=== PATIENT | male | born 1960 | race Hispanic/Latino ===

== ENCOUNTER 2019-02-28 11:48 | Inpatient (IN) | payer OTHER ==
[~2019-02-28] VITALS: Ht 180.3 cm; Wt 84.8 kg
--- OUTSIDE RECORDS SUMMARY | 2019-02-28 11:49 | XMS REPORT ---
Author Author [facility] Address Unknown Phone Unavailable Care Team Providers Care [employer] Grade Teacher Name Role Phone Unavailable Unavailable Payers Payer Name Policy Type Policy Number Effective Date Expiration Date Problems This patient has no known problems. Allergies, Adverse Reactions, Alerts Allergy Name Allergy Type Status Severity Reaction(s) Onset Date Inactive Date Treating Clinician Comments No Known Allergies DA Active U 2018-11-19 00:00:00 Medications This patient has no known medications. Results Test Description Test Time Test Comments Text Results Atomic Results Result Comments ELECTROLYTES PROFILE 2018-11-19 17:33:00 SODIUM (test code=NA) 142 mmol/L 136-145 POTASSIUM (test code=K) 3.9 mmol/L 3.5-5.1 CHLORIDE (test code=CL) 110.0 mmol/L 98-107 CARBON DIOXIDE (test code=CO2) 27.0 mmol/L 21-32 ANION GAP (test code=GAP) 8.9 10-20 CBC W/AUTO [id number] 17:18:00* Test Item Value Reference Range Comments WHITE BLOOD CELL (test code=WBC) 3.0 K/mm3 4.5-12.5 RED BLOOD CELL (test code=RBC) 3.46 mill/mm3 4.0-5.8 HEMOGLOBIN (test code=HGB) 9.6 gram/dL 13.0-17.5 HEMATOCRIT (test code=HCT) 31.5 % 42.0-52.0 MEAN CELL VOLUME (test code=MCV) 91.0 fL 80-98 MEAN CELL HGB (test code=MCH) 27.7 picogram 27.0-33.0 MEAN CELL HGB CONCETRATION (test code=MCHC) 30.5 gram/dL 33.0-36.0 RED CELL DISTRIBUTION WIDTH (test code=RDW) 16.9 % 11.6-16.2 RED CELL DISTRIBUTION WIDTH SD (test code=RDW-SD) 55.5 fL 37.0-51.0 PLATELET COUNT (test code=PLT) 109 K/mm3 150-450 MEAN PLATELET VOLUME (test code=MPV) 9.6 fL 6.7-11.0 NEUTROPHIL % (test code=NT%) 50.6 % 39.0-69.0 IMMATURE GRANULOCYTE % (test code=IG%) 0.0 % 0.0-5.0 LYMPHOCYTE % (test code=LY%) 33.6 % 25.0-55.0 MONOCYTE % (test code=MO%) 12.8 % 0.0-10.0 EOSINOPHIL % (test code=EO%) 2.7 % 0.0-5.0 BASOPHIL % (test code=BA%) 0.3 % 0.0-1.0 NUCLEATED RBC % (test code=NRBC%) 0.0 % 0-0 NEUTROPHIL # (test code=NT#) 1.51 K/mm3 1.8-7.7 IMMATURE GRANULOCYTE # (test code=IG#) 0.00 x10 3/uL 0-0.03 LYMPHOCYTE # (test code=LY#) 1.00 K/mm3 1.0-5.0 MONOCYTE # (test code=MO#) 0.38 K/mm3 0-0.8 EOSINOPHIL # (test code=EO#) 0.08 K/mm3 0.0-0.5 BASOPHIL # (test code=BA#) 0.01 K/mm3 0.0-0.2 NUCLEATED RBC # (test code=NRBC#) 0.00 K/mm3 0.0-0.1 MANUAL DIFF REQUIRED (test code=MDIFF) NO
--- OUTSIDE RECORDS SUMMARY | 2019-02-28 11:49 | XMS REPORT | Clinical Summary ---
Author Author ROSLYN [facility] Organization [facility] Address Unknown Phone Unavailable Care Team Providers Care [employer] Name Role Phone Abdon Fields PCP Allergies No Known Allergies Medications End Date Status Medication Sig Dispensed Refills Start Date Active propranolol (INDERAL) 10 Take 10 mg by 0 MG tablet mouth 2 (two) times daily. Active losartan-hydroCHLOROthiaz Take 1 tablet 0 josie (HYZAAR) 100-25 mg by mouth per tablet daily. Active pantoprazole (PROTONIX) Take 40 mg by 0 40 MG tablet mouth daily. Active Problems No known active problems Encounters Care Team Description Date Type Specialty Jeancarlos Barker MD 10/21/2018 Anesthesia Gastroenterology Event Ray Castellanos MD UPPER ENDOSCOPY,FNA W/ULTRASOUND 10/21/2018 Surgery Gastroenterology Ray Castellanos MD 10/21/2018 Hospital Gastroenterology Encounter Resource, [facility] Phone 10/16/2018 Hospital Pre-Admission Testing Encounter after 02/27/2018 Social History Date Tobacco Use Types Packs/Day Years Used Never Smoker Smokeless Tobacco: Never Used Alcohol Use Drinks/Week oz/Week Comments No quit 09/26/2018 Alcohol Habits Answer Date Recorded How often do you have a drink containing alcohol? Never 10/16/2018 How many drinks containing alcohol do you have on Not asked a typical day when you are drinking? How often do you have six or more drinks on one Not asked occasion? Sex Assigned at Date Recorded Not on file Industry Job Start Date Occupation Not on file Not on file Not on file Travel End Travel History Travel Start No recent travel history available. Last Filed Vital Signs Time Taken Vital Sign Reading 10/21/2018 11:30 AM [employer] Blood Pressure 103/56 10/21/2018 11:30 AM [employer] Pulse 74 10/21/2018 11:30 AM [employer] Temperature 36.7 C (98 F) 10/21/2018 11:30 AM [employer] Respiratory Rate 14 10/21/2018 11:30 AM [employer] Oxygen Saturation 98% - Inhaled Oxygen - Concentration 10/21/2018 8:57 AM [employer] Weight 78.2 kg (172 lb 8 oz) 10/21/2018 8:57 AM [employer] Height 180.3 cm (5' 11") 10/21/2018 8:57 AM [employer] Body Mass Index 24.06 Plan of Treatment Not on file Procedures Comments Procedure Name Priority Date/Time Associated Diagnosis REPORT OF PROCEDURE - 10/21/2018 ENDOSCOPY URL 10:37 AM [employer] UPPER ENDOSCOPY,FNA 10/21/2018 Gastric varices W/ULTRASOUND 10:00 AM [employer] Special Needs (LINEAR SCOPE, COIL and GLUE) after 02/27/2018 Results * REPORT OF PROCEDURE - ENDOSCOPY URL (10/21/2018 10:37 AM [employer]) Narrative Performed At after 02/27/2018 Insurance Payer Benefit Subscriber ID Type Phone Address Plan / Group AETNA - [employer] AETNA HMO xxxxxxxxxx HMO/POS POS QPOS
[2019-02-28] MEDS ORDERED: CEFEPIME HCL 1 GM VIAL IV SCH (13:15)
[2019-02-28] MEDS ORDERED: CEFEPIME 1GM/NS 0.9% 50 ML 50 ML IV ONE (13:30)
--- NOTE | 2019-02-28 14:04 | Diagnostic Imaging Report ---
EXAMINATION: CHEST 2 VIEWS INDICATION: ^fuo ^[id number] ^[id number] ^N COMPARISON: None FINDINGS: PA and lateral views TUBES and LINES: None. LUNGS: Lungs are well inflated. Indeterminate 5.2 cm right upper lobe opacity extending into the pleural space. Bilateral hilar and lower lobes. Bronchial wall thickening. PLEURA: No pleural effusion or pneumothorax. HEART AND MEDIASTINUM: The cardiomediastinal silhouette is unremarkable. BONES AND SOFT TISSUES: No acute osseous lesion. Soft tissues are unremarkable. UPPER ABDOMEN: No free air under the diaphragm. IMPRESSION: Indeterminate right upper lobe mass/consolidation. Recommend further evaluation with CT chest with IV contrast. Signed by: Dr. Dorene Mcclure M.D. on 02/28/2019 2:01 PM
[2019-02-28 14:17] LABS: BILIRUBIN,URINE NEGATIVE (NEGATIVE); CLARITY,URINE SL CLOUDY (CLEAR); KETONES,URINE NEGATIVE (NEGATIVE); LEUKOCYTE ESTERASE ,URINE NEGATIVE (NEGATIVE); NITRITE,URINE NEGATIVE (NEGATIVE); PROTEIN,URINE DIPSTICK NEGATIVE (NEGATIVE); URINE UROBILINOGEN 1 mg/dL (0.2 - 1)
[2019-02-28 14:18] LABS: BASOPHILS % 0.2 % (0.0-1.0); EOSINOPHILS # (AUTO) 0.1 (0.0-0.4); EOSINOPHILS % 0.5 % (0.0-6.0); HEMATOCRIT 26.1 % (38.2-49.6); HEMOGLOBIN 8.4 g/dL (14.0-18.0); LYMPHOCYTES # (AUTO) 1.3 (1.0-3.2); LYMPHOCYTES % 9.1 % (18.0-39.1); MEAN CORPUSCULAR HEMOGLOBIN 27.1 pg (28-32); MEAN CORPUSCULAR HGB CONC 32.2 g/dL (31-35); MEAN CORPUSCULAR VOLUME 84.2 fL (81-99); MONOCYTES # (AUTO) 1.2 (0.2-0.8); MONOCYTES % 8.3 % (4.4-11.3); NEUTROPHILS # (AUTO) 11.9 (2.1-6.9); NEUTROPHILS % 81.4 % (38.7-80.0); PLATELET COUNT 81 x10e3/uL (140-360); RED CELL DISTRIBUTION WIDTH 14.9 % (11.7-14.4)
[2019-02-28 14:20] LABS: COLOR,URINE AMBER (YELLOW)
[2019-02-28 14:25] LABS: AMORPHOUS SEDIMENT,URINE FEW (FEW); BACTERIA,URINE FEW /HPF; EPITHELIAL CELLS,URINE FEW /LPF; RBC,URINE 0-5 /HPF (0-5)
[2019-02-28 14:34] LABS: INR 2.1; PROTHROMBIN TIME 24.2 seconds (11.9-14.5)
[2019-02-28 14:35] LABS: PARTIAL THROMBOPLASTIN TIME 51.8 seconds (23.8-35.5)
[2019-02-28 14:43] LABS: ALANINE AMINOTRANSFERASE 18 IU/L (0-55); ALBUMIN/GLOBULIN RATIO 0.5 (0.8-2.0); ALKALINE PHOSPHATASE 112 IU/L (40-150); ANION GAP 12.3 mmol/L (8-16); BLOOD UREA NITROGEN 12 mg/dL (7-26); BUN/CREATININE RATIO 16 (6-25); CALCIUM 7.8 mg/dL (8.4-10.2); CARBON DIOXIDE 20 mmol/L (22-29); CHLORIDE 102 mmol/L (98-107); CREATININE, SERUM 0.74 mg/dL (0.72-1.25); EST GLOMERULAR FILTRATION RATE > 60 ML/MIN (60-); GLUCOSE 120 mg/dL (74-118); POTASSIUM 3.3 mmol/L (3.5-5.1); SODIUM 131 mmol/L (136-145)
[2019-02-28] MEDS ORDERED: IOPAMIDOL 370 MG/ML 200 ML INFUS..BTL INJ ONE (14:58)
[2019-02-28] MEDS ORDERED: SODIUM CHLORIDE 0.9% 50ML 50 ML ONE (14:58)
--- NOTE | 2019-02-28 16:36 | Diagnostic Imaging Report ---
EXAM: CT Chest WITH contrast 02/28/2019 3:15 PM INDICATION: ^possible mass or pneumonia RUL ^[id number] ^[id number] COMPARISON: Chest radiograph 02/28/2019 TECHNIQUE: Chest was scanned utilizing a multidetector helical scanner from the lung apex through the level of the adrenal glands after administration of IV contrast. Coronal and sagittal reformations were obtained. IV CONTRAST: 100 mL of Isovue-370 ORAL CONTRAST: None COMPLICATIONS: None RADIATION DOSE: Total DLP: 554.19 mGy*cm Estimated effective dose: (DLP x 0.015 x size factor) mSv CTDIvol has been reviewed. It is below the limits set by the Radiation Protocol Committee (RPC). FINDINGS: LINES/ TUBES: None. LUNGS AND AIRWAYS: Large, 5.3 x 4.6 cm, pleural-based right upper lobe consolidation/mass, which is abutting the fissure. There are additional multiple pleural-based nodules measuring up to 13 mm in the posterior right lower lobe with surrounding mild groundglass opacities on series 3, images 84-91 and a 13 mm pleural-based solid nodule in the left upper lobe on image 49. Patchy groundglass opacity in the left upper lobe, measuring up to 2.7 cm on series 3, image 41. Mild subpleural reticulation of the lungs in both posterior lobe suggestive of minimal pulmonary fibrosis. No honeycombing. No bronchiectasis. PLEURA: The pleural spaces are clear. HEART AND MEDIASTINUM: The thyroid gland is normal. Few noncalcified mediastinal lymph nodes with the largest measuring 1.6 cm in the right lower paratracheal region (4R) on series 2, image 59 and a subcarinal lymph node measuring 1.2 cm on image 70. Fewer small subcentimeter right hilar lymph nodes. The left atrium is enlarged. Moderate calcifications of the mitral annulus. Mild to moderate coronary artery calcifications. There is no pericardial effusion. The thoracic aorta is normal in size and associated with minimal calcifications in the arch. The main pulmonary artery is mildly increased in size measuring 3.1 cm in diameter. UPPER ABDOMEN: The right adrenal gland is unremarkable. The left adrenal gland has not been included in this exam. Cirrhotic liver morphology with multiple gastroesophageal and gastrosplenic varices. Metallic/coiling material within the stomach. Small amount of ascites. The spleen appears prominent. BONES: The visualized bony thorax is within normal limits. SOFT TISSUES: Gynecomastia. IMPRESSION: Large right upper lobe pleural-based consolidation/mass with associated multiple pleural-based posterior right lower lobe and left upper lobe solid nodules, measuring up to 13 mm. Findings are highly concerning for malignancy with possible superimposed pneumonia. Differential diagnoses include aggressive infection due to mycobacterial or fungal infection. Mediastinal and right hilar lymphadenopathy. Recommend pulmonary consultation. Signed by: Dr. Dorene Mcclure M.D. on 02/28/2019 4:33 PM
[2019-02-28] MEDS ORDERED: D5.45%NS/KCL 20MEQ 1,000 ML IV SCH (17:30)
[2019-02-28] MEDS: PIPER-TAZ 3.375 GM 50 ML IV SCH (18:00)
--- OUTSIDE RECORDS SUMMARY | 2019-02-28 18:23 | XMS REPORT | Clinical Summary ---
Author Author ROSLYN [facility] Organization [facility] Address Unknown Phone Unavailable Care Team Providers Care Supervisor Instrument Maintenance Name Role Phone Abdon Fields PCP Allergies [...] Castellanos MD 10/21/2018 Hospital Gastroenterology Encounter Resource, [facility] Phone 10/16/2018 Hospital Pre-Admission Testing Encounter [...] Taken Vital Sign Reading 10/21/2018 11:30 AM TANK INSPECTOR Blood Pressure 103/56 10/21/2018 11:30 AM TANK INSPECTOR Pulse 74 10/21/2018 11:30 AM TANK INSPECTOR Temperature 36.7 C (98 F) 10/21/2018 11:30 AM TANK INSPECTOR Respiratory Rate 14 10/21/2018 11:30 AM TANK INSPECTOR Oxygen Saturation 98% - Inhaled Oxygen - Concentration 10/21/2018 8:57 AM TANK INSPECTOR Weight 78.2 kg (172 lb 8 oz) 10/21/2018 8:57 AM TANK INSPECTOR Height 180.3 cm (5' 11") 10/21/2018 8:57 AM TANK INSPECTOR Body Mass Index 24.06 Plan of Treatment Not on file Procedures Comments Procedure Name Priority Date/Time Associated Diagnosis REPORT OF PROCEDURE - 10/21/2018 ENDOSCOPY URL 10:37 AM TANK INSPECTOR UPPER ENDOSCOPY,FNA 10/21/2018 Gastric varices W/ULTRASOUND 10:00 AM TANK INSPECTOR Special Needs (LINEAR SCOPE, COIL and GLUE) after 02/27/2018 Results * REPORT OF PROCEDURE - ENDOSCOPY URL (10/21/2018 10:37 AM TANK INSPECTOR) Narrative Performed At after 02/27/2018 Insurance Payer Benefit Subscriber ID Type Phone Address Plan / Group AETNA - [employer] C[employer] AETNA HMO xxxxxxxxxx HMO/POS POS QPOS
--- NOTE | 2019-02-28 18:31 | NUR ---
DR SANDOVAL AT BEDSIDE
--- NOTE | 2019-02-28 19:00 | NUR ---
Received report from previous nurse. Waiting for patient to come to the unit.
[2019-02-28 19:35] VITALS: BP 139/63
--- NOTE | 2019-02-28 19:35 | NUR ---
Patient arrived via stretcher to the unit. at bedside. Patient in bed. Call light within reach.
[2019-02-28] MEDS: ALBUTEROL SULF 0.083% NEB SOLN 3 ML NEB NEB SCH ×2 (19:45→23:10)
[2019-02-28] MEDS: IPRATROPIUM BROMIDE 0.02% 2.5 ML NEB NEB SCH (19:45)
[2019-02-28 20:00] VITALS: BP 139/63
--- NOTE | 2019-02-28 20:03 | Consultation ---
DATE OF CONSULTATION: 02/28/2019 Pulmonary Medicine Consult REFERRING PHYSICIAN: 1. Dr. García. 2. Dr. Fields. REASON FOR REFERRAL: Abnormal chest radiography. HISTORY OF PRESENT ILLNESS: Mr. Rodriguez is a pleasant 58-year-old gentleman with abnormal chest radiography. The patient presented with increasing fevers for the last 3 days. Measured fever up to 103.8 per the . In our hospital, we confirmed high fevers. He is not having any difference in his sputum production. Denies any sinus pain and he has good dentition per his , who is a dental hygienist. The patient had urinalysis with 6 to 10 white blood cells, 15 white count in serum. Albumin was 2.0 with 4.1 globulins. The patient had a chest x-ray demonstrating right upper lobe consolidation and mild atelectasis. CAT scan of the chest demonstrated 5.3 x 4.6 cm right upper lobe ground-glass consolidation, but he also has some subpleural nodules that seems semi solid and he definitely has a contralateral left-sided pericardiac/subpleural nodule and these are up to 13 mm in size. Lungs were also noted to have lymph nodes up to 1.6 cm in the mediastinum. At this point, I am consulted. He has history of advanced cirrhosis, but he quit drinking in September 2018. No known lung disease in the past. PAST MEDICAL HISTORY: Alcoholic cirrhosis, varices, and portal hypertension. MEDICATIONS: Medication list reviewed per the chart record. ALLERGIES: NO KNOWN DRUG ALLERGIES. SOCIAL HISTORY: No smoking. No drugs. Alcohol for at least 20 years, heavy, 6 to 12 drinks per day, but he quit in September 2018. The patient works mainly in transport coordination, but did not have any high occupational exposures. Two dogs and two cats at home. FAMILY HISTORY: Noncontributory to this. REVIEW OF SYSTEMS: GENERAL: No weight loss. HEENT: No ulcers in mouth. ENDOCRINE: No thyroid disease. PULMONARY: No hemoptysis. CARDIAC: No heart attacks. : No blood in urine. GI: No diarrhea. MUSCULOSKELETAL: Mild arthritis. PSYCHIATRIC: No depression. NEUROLOGIC: No seizures. OBJECTIVE: VITAL SIGNS: Temperature of 99.5, heart rate 81, 99/60 blood pressure, respiratory rate 16. GENERAL: Mildly tired, but no acute distress, in bed, speaking. HEENT: Normocephalic, atraumatic. Some dentition missing but present teeth are in reasonable state. NECK: Supple. Throat midline. LUNGS: Bilateral air entry, limited but mostly clear. CARDIOVASCULAR: S1, S2. No murmurs, rubs, or gallops. ABDOMEN: Soft, nontender. EXTREMITIES: No clubbing no cyanosis. There is some 2+ edema in the legs. INTEGUMENT: No rash, no purpura. LABORATORY DATA: 15 white count, 26 hematocrit, 81 platelets. 3.3 potassium, 131 sodium, 12 BUN, 0.7 creatinine. INR 2.10. IMPRESSION AND PLAN: 1. Abnormal chest radiography, 5.3 cm ground-glass consolidation right upper lobe. Treat for community-acquired pneumonia. 2. History of some fevers over the last five months recurring. Widened differential, rule out chronic pneumonia. 3. Bilateral lung nodules, more solid appearance either related to the acute pneumonitis versus unrelated. 4. Abnormal chest radiography, nonspecific lymph nodes up to 1.6 cm in size. 5. Alcohol dependency, 6 to 12 drinks per day, but quit in September 2018. 6. Hypertension. 7. Portal hypertension, esophageal varices status post banding. 8. Coagulopathy, likely hepatic related. 9. Severe protein malnutrition. 10. Hypergammaglobulinemia. 11. Anemia. 12. Thrombocytopenia. 13. Hyponatremia. 14. Hypokalemia. 15. Leg edema. Repeat labs in the morning. Follow up clinically see if he improves. Treat for community-acquired pneumonia. If there is a lag in his improvement, we will consider bronchoscopy to look for chronic pneumonitis. Check noninvasive and serologic markers for fungal pneumonias. Continue alcohol abstinence. Regarding the solid lung nodules, we will consider biopsy if he does not get better soon or alternately perform three months repeat chest radiography with or without PET scanning at that time. The patient in guarded condition due to his advanced cirrhosis. Thank you very much, Dr. Fields and Dr. García for allowing me a chance to participate in the care of Mr. Rodriguez. Please call with questions. MD MECHE Camp/MODL /[id number]
[2019-02-28] MEDS: DOXYCYCLINE 100MG/NS 100ML 100 ML IV SCH (21:53)
[2019-02-28] MEDS ORDERED: PROPRANOLOL HCL10 MG PO (23:11)
[2019-02-28] MEDS ORDERED: PANTOPRAZOLE SO40 MG PO (23:11)
--- NOTE | 2019-02-28 23:15 | NUR ---
Called and talked to Dr. Kennedy about patient having a temperature of 102.1F. Dr. Kennedy ordered a BMP and Magnesium done tomorrow morning. He also ordered Tylenol 650 mg q4h PRN for temperature greater than 101.
[2019-02-28] MEDS: ACETAMINOPHEN 325 MG TAB PO PRN (23:32)
[2019-02-28] MEDS ORDERED: INFLUENZA VIRUS VAC SPLIT INJ 0.5 ML SYR IM SCH (23:42)
[2019-02-28] MEDS ORDERED: PNEUMOCOCCAL VACCINE POLYVALENT 23 MCG/0.5 ML VIAL IM SCH (23:42)
[2019-03-01] VITALS (9 sets, daily range): BP systolic 90–121; BP diastolic 55–71
[2019-03-01] MEDS: PIPER-TAZ 3.375 GM 50 ML IV SCH ×5 (00:02→23:20)
[2019-03-01] MEDS: IPRATROPIUM BROMIDE 0.02% 2.5 ML NEB NEB SCH ×4 (02:30→19:42)
[2019-03-01] MEDS: ALBUTEROL SULF 0.083% NEB SOLN 3 ML NEB NEB SCH ×5 (02:30→19:42)
[2019-03-01] MEDS ORDERED: D5.45%NS/KCL 20MEQ 1,000 ML IV SCH (06:00)
[2019-03-01 06:10] LABS: BASOPHILS % 0.4 % (0.0-1.0); EOSINOPHILS # (AUTO) 0.1 (0.0-0.4); EOSINOPHILS % 0.5 % (0.0-6.0); HEMATOCRIT 26.2 % (38.2-49.6); HEMOGLOBIN 8.3 g/dL (14.0-18.0); LYMPHOCYTES # (AUTO) 1.4 (1.0-3.2); LYMPHOCYTES % 12.9 % (18.0-39.1); MEAN CORPUSCULAR HEMOGLOBIN 27.1 pg (28-32); MEAN CORPUSCULAR HGB CONC 31.7 g/dL (31-35); MEAN CORPUSCULAR VOLUME 85.6 fL (81-99); MONOCYTES % 9.2 % (4.4-11.3); NEUTROPHILS # (AUTO) 8.3 (2.1-6.9); NEUTROPHILS % 76.2 % (38.7-80.0); RED BLOOD COUNT 3.06 x10e6/uL (4.3-5.7); RED CELL DISTRIBUTION WIDTH 14.8 % (11.7-14.4)
[2019-03-01 06:11] LABS: PLATELET COUNT 86 x10e3/uL (140-360)
[2019-03-01 06:28] LABS: INR 2.31; PROTHROMBIN TIME 26.1 seconds (11.9-14.5)
[2019-03-01 06:29] LABS: PARTIAL THROMBOPLASTIN TIME 56.8 seconds (23.8-35.5)
[2019-03-01 06:35] LABS: ALANINE AMINOTRANSFERASE 15 IU/L (0-55); ALBUMIN 1.8 g/dL (3.5-5.0); ALBUMIN/GLOBULIN RATIO 0.5 (0.8-2.0); ALKALINE PHOSPHATASE 93 IU/L (40-150); ANION GAP 8.5 mmol/L (8-16); BLOOD UREA NITROGEN 14 mg/dL (7-26); BUN/CREATININE RATIO 19 (6-25); CALCIUM 7.6 mg/dL (8.4-10.2); CARBON DIOXIDE 23 mmol/L (22-29); CHLORIDE 106 mmol/L (98-107); CREATININE, SERUM 0.72 mg/dL (0.72-1.25); EST GLOMERULAR FILTRATION RATE > 60 ML/MIN (60-); GLUCOSE 125 mg/dL (74-118); LACTATE DEHYDROGENASE 207 IU/L (125-220); MAGNESIUM 1.2 MG/DL (1.3-2.1); POTASSIUM 3.5 mmol/L (3.5-5.1); SODIUM 134 mmol/L (136-145)
--- NOTE | 2019-03-01 07:16 | NUR ---
GAVE REPORT TO ONCOMING NURSE. PATIENT IN BED. CALL LIGHT WITHIN REACH.
--- NOTE | 2019-03-01 07:21 | NUR ---
PATIENT IN BED WITH HEAD OF BED ELEVATED RECEIVING NEB TREATMENT, NO DISTRESS NOTED. DENIED PAIN AT THIS TIME. BED IN LOWER POSITION AND LOCKED. CALL LIGHT AT REACH.
[2019-03-01] MEDS: CEFTRIAXONE SOD 1 GM/NS 50 ML 50 ML IV SCH (08:18)
[2019-03-01] MEDS: DOXYCYCLINE 100MG/NS 100ML 100 ML IV SCH ×2 (09:00→20:02)
[2019-03-01 09:02] LABS: HIV 1&2 AB SCREEN NON-REACTIVE (NONREACTIVE)
[2019-03-01] MEDS: MULTIVITAMINS/MINERALS TAB PO SCH (09:06)
--- NOTE | 2019-03-01 11:12 | NUR ---
PATIENT SITTING UP IN BED TALKING ON THE PHONE, NO COMPLAIN VOICED. IV FLUID INFUSINGAS ORDERED. CALL LIGHT AT REACH.
--- NOTE | 2019-03-01 12:25 | NUR ---
Pulmonary Medicine DATE OF ENCOUNTER: 03/01/2019 SUBJECTIVE: PATIENt feels a lot better he walked to restroom RA FIO2 BCX coming positive low normal BP REVIEW OF SYSTEMS: no rash, no seizures OBJECTIVE: VITAL SIGNS: reviewed as per EMR GENERAL: Better energy, NAD HEENT: Normocephalic, atraumatic. NECK: Supple. Throat midline. LUNGS: Bilateral air entry, limited but mostly clear. CARDIOVASCULAR: S1, S2. No murmurs, rubs, or gallops. ABDOMEN: Soft, nontender. EXTREMITIES: No clubbing no cyanosis. 2+ leg edema INTEGUMENT: No rash, no purpura. LABORATORY DATA: k 3.5, 11 wbc, mg 1.2, phos 2.0, inr 2.31, hiv negative IMPRESSION AND PLAN: 1. Abnormal chest radiography, 5.3 cm ground-glass consolidation in right upper lobe. Treat for community-acquired pneumonia. 2. History of some fevers over the last five months recurring. Widened differential, rule out chronic pneumonia. 3. Bilateral lung nodules of a more solid appearance. Either related to the acute pneumonitis versus an unrelated other process. 4. Abnormal chest radiography, nonspecific lymph nodes up to 1.6 cm in size. 5. Alcohol dependency, 6 to 12 drinks per day, quit September 2018. 6. Hypertension. 7. Portal hypertension, esophageal varices status post banding. 8. Coagulopathy, likely hepatic related. 9. Severe protein malnutrition. 10. Hypergammaglobulinemia. 11. Anemia. 12. Thrombocytopenia. 13. Hyponatremia. 14. Hypokalemia. 15. Leg edema. Replete labs Follow up clinically for more improvement. IV Abx for CAP If there is a lag in his improvement, we will consider bronchoscopy to look for chronic pneumonia Follow up noninvasive and serologic markers for fungal pneumonias. Continue alcohol abstinence. Regarding the solid lung nodules, biopsy can be considered if he does not get better soon or alternately perform a repeat three months chest CT+/- PET scanning at that time and consider biopsy needs AM CXR Thank you very much, Dr. Fields and Dr. García for allowing me a chance to participate in the care of Mr. Rodriguez. Please call with questions.
[2019-03-01] MEDS ORDERED: PHYTONADIONE 10 MG/ML AMP SC ONE (13:00)
[2019-03-01] MEDS ORDERED: MAGNESIUM SULFATE 2GM/50ML 50 ML IV ONE (13:00)
[2019-03-01] MEDS ORDERED: POTASSIUM PHOSPHATE 20 MM in SODIUM CHLORIDE 0.9% 250ML 250 ML IV ONE (13:00)
[2019-03-01] MEDS ORDERED: SODIUM CHLORIDE 0.9% 500ML 500 ML ONE (15:11)
--- NOTE | 2019-03-01 16:19 | NUR ---
PATIENT SITTING UP IN BED TALKING TO FAMILY MEMBER VISITING, NO DISTRESS NOTED. IV POTASSIUM INFUSING ORDERED. CALL LIGHT AT REACH.
[2019-03-01] MEDS ORDERED: PANTOPRAZOLE SO40 MG PO (17:52)
[2019-03-01] MEDS ORDERED: PROPRANOLOL HCL10 MG PO (17:52)
--- NOTE | 2019-03-01 19:30 | NUR ---
PT IS RESTING IN THE BED WITH AT BEDSIDE. RESPIRATION IS EVEN AND UNLABORED, NO DISTRESS NOTED. BED IN THE LOWEST POSITION, LOCKED, AND CALL LIGHT WITHIN REACH. WILL CONTINUE TO MONITOR.
[2019-03-01] MEDS: ACETAMINOPHEN 325 MG TAB PO PRN (23:30)
[2019-03-02] VITALS (9 sets, daily range): BP systolic 104–131; BP diastolic 58–78
[2019-03-02] MEDS: IPRATROPIUM BROMIDE 0.02% 2.5 ML NEB NEB SCH ×4 (00:08→19:38)
[2019-03-02] MEDS: ALBUTEROL SULF 0.083% NEB SOLN 3 ML NEB NEB SCH ×7 (00:08→19:38)
[2019-03-02] MEDS: PIPER-TAZ 3.375 GM 50 ML IV SCH ×3 (05:56→18:22)
--- NOTE | 2019-03-02 06:45 | Diagnostic Imaging Report ---
EXAMINATION: CHEST SINGLE (PORTABLE) INDICATION: pneumonia COMPARISON: Chest CT 02/28/2019 FINDINGS: AP view TUBES and LINES: None. LUNGS: Lungs are well inflated. Airspace and consolidative opacity in the right upper lobe. PLEURA: New small right pleural effusion. HEART AND MEDIASTINUM: The cardiomediastinal silhouette is unremarkable. BONES AND SOFT TISSUES: No acute osseous lesion. Soft tissues are unremarkable. UPPER ABDOMEN: No free air under the diaphragm. IMPRESSION: The right upper lobe opacity is consistent with pneumonia, although underlying malignancy is possible. Recommend follow-up chest CT in 6 weeks following treatment for reevaluation. New small right pleural effusion. Signed by: Pasha Clark DO on 03/02/2019 6:41 AM
--- NOTE | 2019-03-02 07:22 | NUR ---
PATIENT IN BED RESTING WITH EYES CLOSED, NO RESPIRATORY DISTRESS OBSERVED. BED IN LOWER POSITION, CALL LIGHT AT REACH.
[2019-03-02] MEDS: CEFTRIAXONE SOD 1 GM/NS 50 ML 50 ML IV SCH (08:40)
[2019-03-02] MEDS: DOXYCYCLINE 100MG/NS 100ML 100 ML IV SCH ×2 (09:00→21:34)
[2019-03-02] MEDS: MULTIVITAMINS/MINERALS TAB PO SCH (09:05)
--- NOTE | 2019-03-02 11:19 | NUR ---
PATIENT ASSISTED TO THE RESTROOM AND BACK TO BED. DENIED PAIN OR DISCOMFORT. CALL LIGHT AT REACH.
[2019-03-02] MEDS ORDERED: PHYTONADIONE 10 MG/ML AMP SQ ONE (13:15)
--- NOTE | 2019-03-02 13:27 | NUR ---
Pulmonary Medicine DATE OF ENCOUNTER: 03/02/2019 SUBJECTIVE: Feels mildly better fever to 102 F noted voids 1 bm x 3 eating REVIEW OF SYSTEMS: no rash, no seizures OBJECTIVE: VITAL SIGNS: reviewed as per EMR GENERAL: Better energy, NAD HEENT: Normocephalic, atraumatic. NECK: Supple. Throat midline. LUNGS: Bilateral air entry, limited but mostly clear. CARDIOVASCULAR: S1, S2. No murmurs, rubs, or gallops. ABDOMEN: Soft, nontender. EXTREMITIES: No clubbing no cyanosis. 2+ leg edema INTEGUMENT: No rash, no purpura. LABORATORY DATA: 3.5 k, cr .7. 11 wbc. hct 26. plt 86. inr 2.31 IMPRESSION AND PLAN: 1. Abnormal chest radiography, 5.3 cm ground-glass consolidation in right upper lobe. Treat for community-acquired pneumonia. 2. History of some fevers over the last five months recurring. Widened differential, rule out chronic pneumonia. 3. Bilateral lung nodules of a more solid appearance. Either related to the acute pneumonitis versus an unrelated other process such as tumor. 4. Abnormal chest radiography, nonspecific lymph nodes up to 1.6 cm in size. 5. Alcohol dependency, 6 to 12 drinks per day, quit September 2018. 6. Hypertension. 7. Portal hypertension, esophageal varices status post banding. 8. Coagulopathy, likely hepatic related. 9. Severe protein malnutrition. 10. Hypergammaglobulinemia. 11. Anemia. 12. Thrombocytopenia. 13. Hyponatremia. 14. Hypokalemia. 15. Leg edema. recheck AM labs, check ESR Follow up clinically for more improvement. IV Abx for CAP Due to refractory fevers, get more invasive specimen. Consult IR for biopsy of MAYKEL nodule --Regarding the solid lung nodules, will offer lung nodule biopsy as patient not readily better, but if the coagulopathy or patient dictates not to get an early biopsy then consider a repeat three months chest CT+/- PET scanning at that time and re-consider biopsy needs BCX growing GNR so far, follow this. ---Follow up noninvasive and serologic markers for fungal pneumonias. No bronchoscopy unless looking for fungi or other conditions. For now, GNR are growing on the blood cultures. Continue alcohol abstinence. intermittent AM CXR Thank you very much, Dr. Fields and Dr. García for allowing me a chance to participate in the care of Mr. Rodriguez. Please call with questions.
[2019-03-02] MEDS ORDERED: VANCOMYCIN 1GM/NS 250 ML 250 ML IV SCH (13:30)
[2019-03-02] MEDS ORDERED: PHYTONADIONE 10MG/ML 10 MG in SODIUM CHLORIDE 0.9% 50ML 50 ML IV ONE ×2 (14:00→14:30)
[2019-03-02] MEDS ORDERED: PHYTONADIONE 10MG/ML 10 MG in SODIUM CHLORIDE 0.9% 50ML 50 ML SC ONE ×2 (14:00→14:30)
[2019-03-02] MEDS: CEFEPIME 1GM/NS 0.9% 50 ML 50 ML IV SCH (14:35)
[2019-03-02] MEDS: ACETAMINOPHEN 325 MG TAB PO PRN (15:50)
--- NOTE | 2019-03-02 16:45 | NUR ---
PATIENT NOTED WITH TEMPERATURE OF 102.3. PRN TYLENOL GIVEN ORDERED. TEMPERATURE RECHECKED WITH THE READING OF 100. WILL CLOSELY MONITOR.
[2019-03-02] MEDS: PROPRANOLOL HCL 10 MG TAB PO SCH (17:31)
--- NOTE | 2019-03-02 19:17 | NUR ---
PT IS SITTING IN THE CHAIR GETTIG A BREATHING TREATMENT WITH A BEDSIDE. RESPIRATION IS EVEN AND UNLABORED, NO DISTRESS NOTED. BED IN THE LOWEST POSITION, LOCKED, AND CALL LIGHT WITHIN REACH. WILL CONTINUE TO MONITOR.
[2019-03-03] MEDS: IPRATROPIUM BROMIDE 0.02% 2.5 ML NEB NEB SCH ×4 (00:12→20:00)
[2019-03-03] MEDS: PIPER-TAZ 3.375 GM 50 ML IV SCH ×4 (00:22→17:57)
[2019-03-03] MEDS: CEFEPIME 1GM/NS 0.9% 50 ML 50 ML IV SCH ×2 (01:25→13:30)
[2019-03-03] MEDS: ALBUTEROL SULF 0.083% NEB SOLN 3 ML NEB NEB SCH ×5 (03:20→20:00)
[2019-03-03 04:00] VITALS: BP 119/65
--- NOTE | 2019-03-03 04:20 | Consultation ---
DATE OF CONSULTATION: 03/02/2019 GI Consult Note REASON FOR CONSULT: Decompensated alcoholic liver cirrhosis. HISTORY OF PRESENTING ILLNESS: A 58-year-old very pleasant male, who is a patient of my associate, Dr. Flores. He has had decompensated alcoholic liver cirrhosis. He got admitted this time in this hospital with spiking fevers for x3 days. Workup revealed that he has right upper lobe consolidation. He is currently being treated on the line of pneumonia. There is also question whether this right lobe consolidation may be representing any underlying malignancy. Pulmonology Service is following the patient. GI is being called because of his history of alcoholic liver cirrhosis. The patient is not on any diuretics. The patient is only on propranolol. The patient has had upper endoscopy and esophageal variceal banding in [facility]. It is not clear whether the patient has any gastric varices. He moves his bowels every day. Therefore, he does not need lactulose. He is not on any Xifaxan. CT chest included a portion of liver in the imaging, that showed a cirrhotic liver. No CT was done with IV contrast. This did not reveal any occult lesion in the liver. No free fluid seen. REVIEW OF SYSTEMS: 12-point system reviewed, symptomatology is limited as per HPI. PAST MEDICAL HISTORY: Alcoholic liver cirrhosis, portal hypertension, esophageal varices. PAST SURGICAL HISTORY: Upper endoscopy done in the recent past. SOCIAL HISTORY: No smoking. Quit drinking 20 years ago. Prior to that, he used to be heavy drinker, drank for significant number of years before quitting. Never used any illicit drugs. FAMILY HISTORY: Negative for any GI or DRAFTER APPRENTICE malignancies. ALLERGIES: NO KNOWN DRUG ALLERGIES. HOME MEDICATIONS: Propranolol and pantoprazole. INPATIENT MEDICATIONS: Reviewed as per OCT. He is on intravenous piperacillin/tazobactam along with doxycycline and cefepime. Other supportive medications. PHYSICAL EXAMINATION: VITAL SIGNS: Temperature 102.3, pulse 97, respirations 16, blood pressure 131/78, oxygen saturation 92% on room air. GENERAL: Appears to be not in any acute distress. HEENT: Oral mucosa is moist. Slightly bilateral icteric sclerae. CVS: S1, S2. Regular. LUNGS: Bilaterally grossly clear with rales in the right upper lung carter. ABDOMEN: Soft. No digitally appreciable shifting dullness. No tenderness. No rebound, rigidity, or guarding. Positive bowel sounds. No palpable mass or hernia. EXTREMITIES: 1+ pitting bilateral leg edema. LABORATORY DATA: WBC 10.91, hemoglobin 8.3, hematocrit 26.2. MCV 85.6, platelet count 86. Sodium 134, potassium 3.5, chloride 106, bicarb 23. BUN 14, creatinine 0.72. Liver enzymes showed total bilirubin 3.6, AST 25, ALT 15, alkaline phosphatase 93, albumin 1.8. WBC 10.91, hemoglobin 8.3, hematocrit 26.2. MCV 85.6, platelet count 86. Urinalysis negative except wbc's 6 to 10 per high-power field. HIV 1 and 2 antibody nonreactive. Chest x-ray showed right upper lobe opacities consistent with pneumonia, although underlying malignancy is possible. Recommend followup chest CT in 6 weeks following the treatment for evaluation. New small right pleural effusion. Chest CT showed large right upper lobe pleural based consolidation/mass with associated multiple pleural-based posterior right lower lobe and left upper lobe solid nodules, measuring up to 13 mm. Findings are highly concerning for malignancy with possible superimposed pneumonia. DIFFERENTIAL DIAGNOSIS: Include: 1. Aggressive infection due to mild bacterial or fungal infection. 2. Mediastinal and right hilar lymphadenopathy. The upper abdominal portion of the chest CT showed right adrenal gland is unremarkable. Left adrenal gland has not been included in this exam. Cirrhotic liver morphology with multiple gastroesophageal, gastrosplenic varices. Metallic coiling material within the stomach. Small amount of ascites. His spleen material is prominent. FINAL IMPRESSION: 1. Decompensated alcoholic liver cirrhosis with esophageal varices and portal hypertension. 2. Chest CT is also showing some metallic clip in the stomach, this is likely that the patient might have had gastric varices, for which he has had EUS-guided endo-coiling. 3. Right lung consolidation versus underlying malignancies with multiple pleural nodules. PLAN: Continue present medical management as per Pulmonary Service. From GI standpoint, I suspect that the patient has developed ascites and peripheral leg edema. This needs to be treated with a dual diuretic. Therefore, we will start 40 mg of furosemide and 100 mg of spironolactone. Monitor electrolytes closely. We will do ultrasound to check for any occult liver lesion as well as ascites. Low-salt diet. Continue other medication as before. We will continue to follow him clinically while he is here. I thank Dr. García for allowing me to participate in the care of this patient. MD MENDOZA Moran /[id number]
[2019-03-03] MEDS: ACETAMINOPHEN 325 MG TAB PO PRN (05:34)
--- NOTE | 2019-03-03 07:15 | NUR ---
The pt. was received in bed asleep ab Addendum: 03/03/19 at 1200 by Monica Carmen RN cont'd note but denies pain or discomfort when awakened. The pt. is receiving several antibiotics.
[2019-03-03 07:51] VITALS: BP 115/60
--- NOTE | 2019-03-03 08:06 | Diagnostic Imaging Report ---
EXAMINATION: CHEST SINGLE (PORTABLE) INDICATION: Pneumonia. COMPARISON: Chest CT 02/28/2019 and chest radiograph 03/02/2019. FINDINGS: AP view TUBES and LINES: None. LUNGS: Lungs are moderately inflated. Persistent confluent consolidative opacity in the right upper lung. Mild patchy opacities at the lung bases. Pulmonary nodules noted on CT chest from 02/28/2019 are not well characterized by radiograph. PLEURA: Persistent small right pleural effusion. HEART AND MEDIASTINUM: The cardiomediastinal silhouette is unremarkable. BONES AND SOFT TISSUES: No acute osseous abnormality. UPPER ABDOMEN: No free air under the diaphragm. IMPRESSION: Persistent multifocal opacities, most confluent in the right upper lung. Please refer to CT chest from 02/28/2019 for further details. Recommend follow-up imaging in 6 weeks. Signed by: Dr. Kyara Love MD on 03/03/2019 8:03 AM
[2019-03-03] MEDS: SPIRONOLACTONE 25 MG TAB PO SCH (08:33)
[2019-03-03] MEDS: PANTOPRAZOLE SOD 40 MG TABEC PO SCH (08:33)
[2019-03-03] MEDS: PROPRANOLOL HCL 10 MG TAB PO SCH ×2 (08:35→17:57)
[2019-03-03] MEDS: FUROSEMIDE 40 MG TAB PO SCH (08:35)
[2019-03-03] MEDS: MULTIVITAMINS/MINERALS TAB PO SCH (08:35)
[2019-03-03 09:00] VITALS: BP 115/60
[2019-03-03] MEDS: DOXYCYCLINE 100MG/NS 100ML 100 ML IV SCH ×2 (09:45→19:30)
[2019-03-03 11:31] VITALS: BP 108/59
--- NOTE | 2019-03-03 12:00 | NUR ---
I spoke with radiology i.e. the lung bx and is was reported that until the pt.'s i n r and temperature is in acceptable range. Dr García here and stated tat the pt's i n r will not be within range due to liver functions and the pt can be given platelets.
--- NOTE | 2019-03-03 12:49 | NUR ---
Pulmonary Medicine DATE OF ENCOUNTER: 03/03/2019 SUBJECTIVE: BCX with e coli sensitivity with mostly sensitive strain he feels a bit better still febrile, temp to 101 F REVIEW OF SYSTEMS: no rash, no bleeding OBJECTIVE: VITAL SIGNS: reviewed as per EMR GENERAL: Better energy, NAD HEENT: Normocephalic, atraumatic. NECK: Supple. Throat midline. LUNGS: Bilateral air entry, limited but mostly clear. CARDIOVASCULAR: S1, S2. No murmurs, rubs, or gallops. ABDOMEN: Soft, nontender. EXTREMITIES: No clubbing no cyanosis. 1+ leg edema INTEGUMENT: No rash, no purpura. LABORATORY DATA: no new updates IMPRESSION AND PLAN: 1. Abnormal chest radiography, 5.3 cm ground-glass consolidation in right upper lobe. Treat for e coli pneumonia. 2. History of some fevers over the last five months recurring. Widened differential, rule out chronic pneumonia. 3. Bilateral lung nodules of a more solid appearance. Either related to the acute pneumonitis vs an unrelated other process such as tumor. 4. Abnormal chest radiography, nonspecific lymph nodes up to 1.6 cm in size. 5. Alcohol dependency, 6 to 12 drinks per day, quit September 2018. 6. Hypertension. 7. Portal hypertension, esophageal varices status post banding. 8. Coagulopathy, likely hepatic related. 9. Severe protein malnutrition. 10. Hypergammaglobulinemia. 11. Anemia. 12. Thrombocytopenia. 13. Hyponatremia. 14. Hypokalemia. 15. Leg edema. recheck AM labs, check ESR Follow up clinically for more improvement and for break in fevers. IV Abx for CAP Due to refractory fevers, get more invasive specimen. Consult IR for biopsy of MAYKEL nodule --Regarding the solid lung nodules, recommend lung nodule biopsy as the patient is not readily better Follow up noninvasive and serologic markers for fungal pneumonias. No bronchoscopy planned to assess the consolidated infiltrate, unless looking for fungi or other conditions. Continue alcohol abstinence. Intermittent AM CXR Thank you very much, Dr. Fields and Dr. García for allowing me a chance to participate in the care of Mr. Rodriguez. Please call with questions.
--- NOTE | 2019-03-03 15:34 | Diagnostic Imaging Report ---
EXAM: Right upper quadrant abdominal ultrasound INDICATION: Right upper quadrant pain COMPARISON: None. TECHNIQUE: Transverse and longitudinal images of the right upper quadrant abdomen were obtained FINDINGS: Liver: Size: 17.4 cm in the right midclavicular line, normal Appearance: Increased echogenicity, nodular contour Mass: No focal masses Gallbladder: Gallbladder is decompressed and contains small amount of sludge and small echogenic foci. No pericholecystic fluid or reported sonographic Davis's sign. Gallbladder wall measures 0.4 cm. Bile Ducts: Intrahepatic Ducts: No dilatation Extrahepatic Ducts: Common bile duct measures 0.5cm, no dilatation Pancreas: Visualized portions of the pancreatic head, neck and proximal body are normal. Kidney: The right kidney measures 11.4 cm without evidence of hydronephrosis or stone. Vessels: Aorta: Visualized portions are normal Inferior Vena Cava: Visualized portions are normal Main Portal Vein: 1.1 cm, normal size with hepatopetal flow. Free Fluid: Small ascites. IMPRESSION: Hepatic steatosis and cirrhotic liver contour. Decompressed gallbladder with small amount of sludge and small echogenic foci. No specific sonographic findings of cholecystitis. Signed by: Silverio Park MD on 03/03/2019 3:30 PM
[2019-03-03 15:58] VITALS: BP 110/60
--- NOTE | 2019-03-03 19:13 | NUR ---
Received change of shift report from AM nurse. Walking rounds completed.
[2019-03-03 20:00] VITALS: BP 109/59
--- NOTE | 2019-03-03 21:00 | NUR ---
Patient AAOx3. Denies pain at this time. IV intact to left and right AC. Patient has low grade temp 100.3. Decrease temp in room and removed two blankets. Family at bedside. Will recheck temp.
[2019-03-04] VITALS (7 sets, daily range): BP systolic 96–125; BP diastolic 50–66
--- NOTE | 2019-03-04 | NUR ---
Patient temp at 100.6. Paged MD and left a message. Waiting for a call from MD. Patient resting quitly in bed. Cool towels to head and neck. Continue monitor.
[2019-03-04] MEDS: ALBUTEROL SULF 0.083% NEB SOLN 3 ML NEB NEB SCH ×7 (00:07→19:19)
--- NOTE | 2019-03-04 00:11 | Progress Note ---
DATE: 03/03/2019 GI Progress Report SUBJECTIVE: The patient reports no abdominal pain. He is awaiting to get a lung mass biopsy done. Tolerating oral diet. Regular bowel movements. REVIEW OF SYSTEMS: GENERAL: Has had a low-grade temperature today. Complaining of some fatigue. CVS: No chest pain or palpitation. RESPIRATORY: No cough or expectoration. INPATIENT MEDICATIONS: Reviewed the MAR. He is getting intravenous cefepime and doxycycline. He was started on furosemide 40 mg daily and spironolactone 100 mg daily along with other medications. PHYSICAL EXAMINATION: VITAL SIGNS: Temperature 100.5, pulse 80, respirations 20, blood pressure 109/59, oxygen saturation 97% on room air. GENERAL: The patient does have cirrhotic feces, looks quite lethargic. Oral mucosa is moist, slightly icteric sclerae. ABDOMEN: Soft, nondistended, nontender. No digital shifting dullness. No palpable mass or hernia. Positive bowel sounds. EXTREMITIES: 1+ bilateral pitting leg edema. LABORATORY DATA: PT 26.1, INR 2.31. Sodium 134, potassium 3.5, chloride 106, bicarb 23. BUN 14, creatinine 0.72, glucose 125. WBC 10.91, hemoglobin 8.3, hematocrit 26.2, MCV 85.6, platelet count 86. Chest x-ray showed persistent multifocal opacities, most confluent in the right upper lung. Please refer to CT chest from 02/28/2019 for further details. Recommend followup imaging in 6 weeks. Ultrasound of the abdomen showed hepatic steatosis and cirrhotic liver contour. Decompressed gallbladder with small amount of sludge and small echogenic foci. No specific sonographic finding of cholecystitis. IMPRESSION: 1. Decompensated alcoholic liver cirrhosis with portal hypertension and underlying esophageal and gastric varices, status post EUS-guided endocoiling of the gastric varices. 2. Right lung consolidation versus underlying malignancies. The patient is awaiting for lung biopsies. Due to supratherapeutic INR (coagulopathy), the biopsy could not be performed. The patient has been given vitamin K. PLAN: From GI standpoint for liver cirrhosis, recommend to continue to put him on low-salt diet, dual diuretic therapy. Monitor electrolytes, especially potassium while the patient is being on spironolactone. The patient has a bowel movement daily. Therefore, he does not require any lactulose. Ultrasound of the abdomen showed very trace ascites. However, the patient has leg edema. Therefore, continuation of dual diuretic therapy is recommended. No occult liver lesion seen in the ultrasound. In order to perform liver biopsy, since the patient has liver cirrhosis; therefore, vitamin K cannot bring down the INR to normal level. Therefore, if it is needed, then consider giving a fresh frozen plasma in order to get the biopsy done. Scott Caballero MD SA/AILIN /[id number]
[2019-03-04] MEDS: IPRATROPIUM BROMIDE 0.02% 2.5 ML NEB NEB SCH ×4 (00:30→19:19)
[2019-03-04] MEDS: CEFEPIME 1GM/NS 0.9% 50 ML 50 ML IV SCH ×2 (01:03→13:30)
--- NOTE | 2019-03-04 04:00 | NUR ---
called again r/t temp which is slowly increasing at 101.1 Patient resting quitly. No c/o at this time.
[2019-03-04] MEDS: PIPER-TAZ 3.375 GM 50 ML IV SCH ×2 (05:37)
[2019-03-04 06:07] LABS: BASOPHILS % 0.4 % (0.0-1.0); EOSINOPHILS # (AUTO) 0.1 (0.0-0.4); EOSINOPHILS % 2.5 % (0.0-6.0); HEMATOCRIT 23.9 % (38.2-49.6); HEMOGLOBIN 7.8 g/dL (14.0-18.0); LYMPHOCYTES # (AUTO) 1.2 (1.0-3.2); LYMPHOCYTES % 24.4 % (18.0-39.1); MEAN CORPUSCULAR HEMOGLOBIN 27.5 pg (28-32); MEAN CORPUSCULAR HGB CONC 32.6 g/dL (31-35); MEAN CORPUSCULAR VOLUME 84.2 fL (81-99); MONOCYTES # (AUTO) 0.7 (0.2-0.8); MONOCYTES % 13.6 % (4.4-11.3); NEUTROPHILS # (AUTO) 2.8 (2.1-6.9); NEUTROPHILS % 58.5 % (38.7-80.0); PLATELET COUNT 95 x10e3/uL (140-360); RED BLOOD COUNT 2.84 x10e6/uL (4.3-5.7); RED CELL DISTRIBUTION WIDTH 14.9 % (11.7-14.4)
[2019-03-04 06:24] LABS: ALANINE AMINOTRANSFERASE 11 IU/L (0-55); ALBUMIN 1.6 g/dL (3.5-5.0); ALBUMIN/GLOBULIN RATIO 0.4 (0.8-2.0); ALKALINE PHOSPHATASE 92 IU/L (40-150); ANION GAP 6.2 mmol/L (8-16); BLOOD UREA NITROGEN 8 mg/dL (7-26); BUN/CREATININE RATIO 13 (6-25); CALCIUM 7.4 mg/dL (8.4-10.2); CARBON DIOXIDE 22 mmol/L (22-29); CHLORIDE 108 mmol/L (98-107); CREATININE, SERUM 0.61 mg/dL (0.72-1.25); EST GLOMERULAR FILTRATION RATE > 60 ML/MIN (60-); GLUCOSE 119 mg/dL (74-118); PHOSPHORUS 2.2 MG/DL (2.3-4.7); POTASSIUM 3.2 mmol/L (3.5-5.1); SODIUM 133 mmol/L (136-145)
[2019-03-04 06:25] LABS: MAGNESIUM 1.1 MG/DL (1.3-2.1)
--- NOTE | 2019-03-04 06:30 | NUR ---
Lab called with mag level of 1.1 Will inform MD or pass infor on to AM nurse.
[2019-03-04] MEDS: PANTOPRAZOLE SOD 40 MG TABEC PO SCH (07:30)
[2019-03-04] MEDS: DOXYCYCLINE 100MG/NS 100ML 100 ML IV SCH ×2 (08:00→20:00)
--- NOTE | 2019-03-04 08:13 | NUR ---
The pt. has an elevated temp this morning and potassium is low. A call will be placed to the drRe for orders.
[2019-03-04 08:35] LABS: INR 1.56; PROTHROMBIN TIME 19.3 seconds (11.9-14.5)
[2019-03-04] MEDS: MULTIVITAMINS/MINERALS TAB PO SCH (09:00)
[2019-03-04] MEDS: PROPRANOLOL HCL 10 MG TAB PO SCH ×2 (09:00→17:00)
[2019-03-04] MEDS: FUROSEMIDE 40 MG TAB PO SCH (09:00)
[2019-03-04] MEDS: SPIRONOLACTONE 25 MG TAB PO SCH (09:00)
[2019-03-04] MEDS ORDERED: POTASSIUM CHLORIDE 20MEQ/100ML 200 ML IV ONE (10:40)
[2019-03-04] MEDS ORDERED: SODIUM CHLORIDE 0.9% 250ML 250 ML ONE (11:17)
[2019-03-04] MEDS ORDERED: MAGNESIUM SULFATE 2GM/50ML 50 ML IV ONE (13:15)
--- NOTE | 2019-03-04 13:15 | NUR ---
Pulmonary Medicine DATE OF ENCOUNTER: 03/04/2019 SUBJECTIVE: more fevers 101.9 feels mildly better again RA fio2 walked REVIEW OF SYSTEMS: no rash, no bleeding OBJECTIVE: VITAL SIGNS: reviewed as per EMR GENERAL: Better energy, NAD HEENT: Normocephalic, atraumatic. NECK: Supple. Throat midline. LUNGS: Bilateral air entry, limited but mostly clear. CARDIOVASCULAR: S1, S2. No murmurs, rubs, or gallops. ABDOMEN: Soft, nontender. EXTREMITIES: No clubbing no cyanosis. 1-2+ leg edema INTEGUMENT: No rash, no purpura. LABORATORY DATA: 3.2 k, 4.8 wbc, mg 1.1, phos 2.2, ca 7.4, alb 1.6 IMPRESSION AND PLAN: 1. Abnormal chest radiography, 5.3 cm ground-glass consolidation in right upper lobe. Treat for e coli pneumonia. 2. History of some fevers over the last five months recurring. Widened differential, rule out chronic pneumonia. 3. Bilateral lung nodules of a more solid appearance. Either related to the acute pneumonitis vs an unrelated other process such as tumor. 4. Abnormal chest radiography, nonspecific lymph nodes up to 1.6 cm in size. 5. Alcohol dependency, 6 to 12 drinks per day, quit September 2018. 6. Hypertension. 7. Portal hypertension, esophageal varices status post banding. 8. Coagulopathy, likely hepatic related. 9. Severe protein malnutrition. 10. Hypergammaglobulinemia. 11. Anemia. 12. Thrombocytopenia. 13. Hyponatremia. 14. Hypokalemia. 15. Leg edema. recheck intermittent lytes / labs Follow up clinically for more improvement and for break in fevers. IV Abx for CAP Due to refractory fevers, get more invasive specimen. Consult IR for biopsy of MAYKEL nodule --Regarding the solid lung nodules, recommend lung nodule biopsy as the patient is not readily better --will follow up with nursing Follow up noninvasive and serologic markers for fungal pneumonias. No bronchoscopy planned to assess the consolidated infiltrate, unless looking for fungi or other conditions. Continue alcohol abstinence. Intermittent CXR Thank you very much, Dr. Fields and Dr. García for allowing me a chance to participate in the care of Mr. Rodriguez. Please call with questions.
--- NOTE | 2019-03-04 20:04 | NUR ---
Received change of shift report from AM nurse. Walking rounds completed.
[2019-03-05] VITALS (8 sets, daily range): BP systolic 90–103; BP diastolic 50–57
--- NOTE | 2019-03-05 | NUR ---
Patient resting quitly at this. Continue monitor.
[2019-03-05] MEDS: IPRATROPIUM BROMIDE 0.02% 2.5 ML NEB NEB SCH ×4 (00:07→12:42)
[2019-03-05] MEDS: ALBUTEROL SULF 0.083% NEB SOLN 3 ML NEB NEB SCH ×6 (00:20→20:10)
--- NOTE | 2019-03-05 00:34 | Progress Note ---
DATE: 03/04/2019 SUBJECTIVE: The patient could not get a lung biopsy today. Biopsy is scheduled tomorrow. He is tolerating oral diet. Reports no abdominal pain. Having regular bowel movement. REVIEW OF SYSTEMS: GENERAL: Admitting to some weakness and lethargy. CVS: No chest pain or palpitation. RESPIRATORY: Occasional cough with mild sputum production. MEDICATIONS: Reviewed as per OCT. PHYSICAL EXAMINATION: VITAL SIGNS: Temperature 98.8, pulse 79, respirations 19, blood pressure 96/50 to 102/58, and oxygen saturation 100% on room air. GENERAL: Not in any acute distress, cirrhotic facies. HEENT: Oral mucosa is moist. Slightly bilateral icteric sclerae. CVS: S1, S2. Regular. LUNGS: Bilaterally grossly clear with rales in the right upper lung field. ABDOMEN: Soft. No digitally appreciable shifting dullness. Nontender. No palpable mass or hernia. Positive bowel sounds. EXTREMITIES: Bilateral leg edema has improved. LABORATORY DATA: WBC 4.84, hemoglobin 7.8 dropped down from 8.3, hematocrit 23.9, MCV 84.2, platelet count 95. Sodium has come down to 133, potassium 3.2, chloride 108, bicarb 22, BUN 8, creatinine 0.61. Liver enzymes showed a total bilirubin has come down to 1.6 from 3.6, AST 21, ALT 11, alkaline phosphatase 92. INR has come down to 1.56 from 2.31. ASSESSMENT: 1. Decompensated alcoholic liver cirrhosis with portal hypertension and esophageal and gastric varices, status post EUS-guided endo coiling of the gastric varices. 2. Right lung consolidation versus underlying malignancies. CT-guided biopsy is schedule tomorrow. INR has fallen within the acceptable range. PLAN: Low-salt diet, dual diuretic therapy, monitor electrolytes, especially potassium. Lactulose if the patient reports any constipation. We will continue to follow him clinically. Scott Caballero MD SA/AILIN /[id number]
[2019-03-05] MEDS: CEFEPIME 1GM/NS 0.9% 50 ML 50 ML IV SCH ×2 (01:30→14:13)
[2019-03-05 06:20] LABS: ANION GAP 7.5 mmol/L (8-16); BLOOD UREA NITROGEN 9 mg/dL (7-26); BUN/CREATININE RATIO 13 (6-25); CALCIUM 7.4 mg/dL (8.4-10.2); CARBON DIOXIDE 23 mmol/L (22-29); CHLORIDE 108 mmol/L (98-107); CREATININE, SERUM 0.67 mg/dL (0.72-1.25); EST GLOMERULAR FILTRATION RATE > 60 ML/MIN (60-); GLUCOSE 134 mg/dL (74-118); MAGNESIUM 1.3 MG/DL (1.3-2.1); PHOSPHORUS 2.5 MG/DL (2.3-4.7); POTASSIUM 3.5 mmol/L (3.5-5.1); SODIUM 135 mmol/L (136-145)
--- NOTE | 2019-03-05 06:49 | NUR ---
Consent signed for procedure today. Patient NPO.
--- NOTE | 2019-03-05 07:25 | NUR ---
PATIENT IN BED RESTING WITH NO S/S OF DISTRESS. DENIED PAIN AT THIS TIME. BED IN LOWER POSITION, CALL LIGHT AT REACH.
[2019-03-05] MEDS: PANTOPRAZOLE SOD 40 MG TABEC PO SCH (07:30)
[2019-03-05] MEDS: DOXYCYCLINE 100MG/NS 100ML 100 ML IV SCH ×2 (08:35→20:12)
[2019-03-05] MEDS: PROPRANOLOL HCL 10 MG TAB PO SCH ×2 (09:00→17:00)
--- NOTE | 2019-03-05 11:27 | NUR ---
CALL RECEIVED FROM RADIOLOGY STAFF STATING THAT PATIENT DOES NOT NEED BIOPSY. HE MIGHT HAVE PNEUMONIA, NOT A MASS PER DR GARVIN. DR SANDOVAL NOTIFIED.
[2019-03-05] MEDS: SPIRONOLACTONE 25 MG TAB PO SCH (11:50)
[2019-03-05] MEDS: FUROSEMIDE 40 MG TAB PO SCH (11:50)
[2019-03-05] MEDS: MULTIVITAMINS/MINERALS TAB PO SCH (11:50)
--- NOTE | 2019-03-05 15:48 | NUR ---
PATIENT SITTING UP IN BED EATING ICE CREAM WITH FAMILY MEMBER. NO COMPLAIN VOICED. CALL LIGHT AT REACH.
--- NOTE | 2019-03-05 18:04 | NUR ---
Nutrition LOS Note RD Recommendation(s) for Physician / Nutrition Prescription: continue with diet as prescribed Plan of Care:Patient has been screened and assessed for nutrition risk. At this time, the patient does not pose any nutrition risk. No further nutrition intervention is warranted at this time. Will re-evaluate if consulted by medical staff. Nutrition reason for involvement: LOS Primary Dx: 1. Decompensated alcoholic liver cirrhosis with portal hypertension and esophageal and gastric varices, status post EUS-guided endo coiling of the gastric varices 2. Right lung consolidation versus underlying malignancies PMH: Alcoholic cirrhosis, varices, and portal hypertension. Ht: 71in Wt: 187lb BMI: 26.1kg/m2 IBW: 172lb +/- 10% RD Assessment: (03/05) 58yo M, who was admitted for fever. Abd US showed hepatic steatosis, cirrhotic liver contour as well as decompressed gallbladder. Visited pt in the room. Pt reported good appetite with 75-100% meal intake recorded since admission. No GI complains reported. Normal BM. Pt denied any chewing or swallowing difficulty. Pt reported losing some weight about 6 months ago but gained all the weight back. brought a big tub of ice-cream for pt. Current diet is appropriate and adequate. Malnutrition Evaluation (03/05/19) The patient does not meet criteria for a specified degree of malnutrition at this time. Will re-evaluate at follow-up as appropriate. Diet Education Needs Assessment: Diet education not indicated. Nutrition Care Level: Low Re Bunn, MS, RD, LD
[2019-03-06] VITALS (7 sets, daily range): BP systolic 92–101; BP diastolic 51–57
[2019-03-06] MEDS: CEFEPIME 1GM/NS 0.9% 50 ML 50 ML IV SCH ×2 (00:48→13:30)
--- NOTE | 2019-03-06 01:16 | Progress Note ---
DATE: 03/05/2019 SUBJECTIVE: The patient did not get the liver or lung biopsy today. Radiologist felt that lung lesion is likely due to underlying pneumonia, the patient is required to have an interval imaging in next 4 to 6 weeks before it becomes indefinite whether lung biopsy should be obtained or not. The patient otherwise reporting no abdominal pain. Tolerating oral feeds. Regular bowel movement. REVIEW OF SYSTEMS: GENERAL: Some weakness and lethargy. CVS: No chest pain or palpitation. RESPIRATORY: No cough or expectoration. MEDICATIONS: Reviewed the MAR. He is getting spironolactone 100 mg daily along with furosemide 40 mg daily. Antibiotic tavarez, he is getting cefepime and doxycycline. Refer to the [facility] for other medications. PHYSICAL EXAMINATION: VITAL SIGNS: Temperature 99.8, pulse 72, respirations 18, blood pressure 101/57 to 102/56, oxygen saturation 98% on room air. GENERAL: Not in any acute distress. Oral mucosa is moist. Anicteric sclerae. ABDOMEN: Soft. Mild gaseous distention. No appreciable shifting dullness. Nontender. No mass or hernia. Positive bowel sounds. EXTREMITIES: Leg edema has significantly improved. LABORATORY DATA: WBC 4.84, hemoglobin 7.8, hematocrit 23.9, MCV 84.2, platelet count 95. Sodium 135, potassium 3.5, chloride 108, bicarb 23, BUN 9, creatinine 0.67, glucose 134. PT 19.3, INR 1.56. Chest x-ray, persistent multifocal opacities. IMPRESSION: 1. Decompensated alcoholic liver cirrhosis with portal hypertension, esophageal and gastric varices, status post EUS-guided endo coiling of the gastric varices. 2. Right lung consolidation versus underlying malignancies. Decision for lung biopsy after interval imaging. PLAN: Low-salt diet, dual diuretic therapy. Monitor electrolyte, especially potassium. The patient will have lactulose to ensure one or two bowel movement daily in case patient develop constipation. The patient will be followed by Dr. Flores in her office as previously scheduled. Scott Caballero MD SA/KENNETHL /[id number]
--- NOTE | 2019-03-06 02:50 | NUR ---
Pulmonary Medicine DATE OF ENCOUNTER: 03/05/2019 SUBJECTIVE: no fevers today IR deferred biopsy in light of improvement RA fio2 decreased leg edema REVIEW OF SYSTEMS: no rash, no bleeding OBJECTIVE: VITAL SIGNS: reviewed as per EMR GENERAL: Better energy, NAD HEENT: Normocephalic, atraumatic. NECK: Supple. Throat midline. LUNGS: Bilateral air entry, limited but mostly clear. CARDIOVASCULAR: S1, S2. No murmurs, rubs, or gallops. ABDOMEN: Soft, nontender. EXTREMITIES: No clubbing no cyanosis. 1-2+ leg edema INTEGUMENT: No rash, no purpura. LABORATORY DATA: 3.5 k, .7 cr. 23 hco3. IMPRESSION AND PLAN: 1. Abnormal chest radiography, 5.3 cm ground-glass consolidation in right upper lobe. Treat for e coli / gram negative pneumonia acquired prior to admission. 2. History of some fevers over the last five months recurring. Widened differential, rule out chronic pneumonia. 3. Bilateral lung nodules of a more solid appearance. Either related to the acute pneumonitis vs an unrelated other process such as tumor. 4. Abnormal chest radiography, nonspecific lymph nodes up to 1.6 cm in size. 5. Alcohol dependency, 6 to 12 drinks per day, quit September 2018. 6. Hypertension. 7. Portal hypertension, esophageal varices status post banding. 8. Coagulopathy, likely hepatic related. 9. Severe protein malnutrition. 10. Hypergammaglobulinemia. 11. Anemia. 12. Thrombocytopenia. 13. Hyponatremia. 14. Hypokalemia. 15. Leg edema. recheck intermittent lytes / labs Follow up clinically for more improvement IV Abx for CAP Follow up noninvasive and serologic markers for fungal pneumonias. No bronchoscopy planned to assess the consolidated infiltrate, unless looking for fungi or other conditions. Continue alcohol abstinence. Intermittent CXR Thank you very much, Dr. Fields and Dr. García for allowing me a chance to participate in the care of Mr. Rodriguez. Please call with questions.
[2019-03-06] MEDS: ALBUTEROL SULF 0.083% NEB SOLN 3 ML NEB NEB SCH ×6 (03:40→23:35)
[2019-03-06] MEDS: IPRATROPIUM BROMIDE 0.02% 2.5 ML NEB NEB SCH ×5 (03:40→23:35)
--- NOTE | 2019-03-06 04:40 | NUR ---
Pulmonary Medicine DATE OF ENCOUNTER: 03/06/2019 SUBJECTIVE: still no fevers ate ok minimal edema in legs sleeping ok RA fio2, 98% saturation REVIEW OF SYSTEMS: no rash, no chest pain OBJECTIVE: VITAL SIGNS: reviewed as per EMR GENERAL: Better energy, NAD HEENT: Normocephalic, atraumatic. NECK: Supple. Throat midline. LUNGS: Bilateral air entry, limited but mostly clear. CARDIOVASCULAR: S1, S2. No murmurs, rubs, or gallops. ABDOMEN: Soft, nontender. EXTREMITIES: No clubbing no cyanosis. 1+ leg edema INTEGUMENT: No rash, no purpura. LABORATORY DATA: no new updates IMPRESSION AND PLAN: 1. Abnormal chest radiography, 5.3 cm ground-glass consolidation in right upper lobe. Treat for e coli / gram negative pneumonia acquired prior to admission. 2. History of some fevers over the last five months recurring. Widened differential, rule out chronic pneumonia. 3. Bilateral lung nodules of a more solid appearance. Either related to the acute pneumonitis vs an unrelated other process such as tumor. 4. Abnormal chest radiography, nonspecific lymph nodes up to 1.6 cm in size. 5. Alcohol dependency, 6 to 12 drinks per day, quit September 2018. 6. Hypertension. 7. Portal hypertension, esophageal varices status post banding. 8. Coagulopathy, likely hepatic related. 9. Severe protein malnutrition. 10. Hypergammaglobulinemia. 11. Anemia. 12. Thrombocytopenia. 13. Hyponatremia. 14. Hypokalemia. 15. Leg edema. recheck intermittent lytes / labs Follow up clinically for more improvement IV Abx for CAP Follow up noninvasive and serologic markers for fungal pneumonias. No bronchoscopy planned to assess the consolidated infiltrate, unless looking for fungi or other conditions. Continue alcohol abstinence. Intermittent CXR, next CXR today to see if pneumonia is clearing yet Likely to need outpatient CT chest to assess the smaller more solid nodular forms Thank you very much, Dr. Fields and Dr. García for allowing me a chance to participate in the care of Mr. Rodriguez. Please call with questions.
--- NOTE | 2019-03-06 07:00 | NUR ---
RCD PT AT BED PT IS ALERT AND ORIENTED PT RESTING ON BED NO SIGNS OF ANY DISTRESS NOTED IV PATENT FAMILY AT BED SIDE BED LOW AND LOCKED CALL LIGHT IN REACH
[2019-03-06] MEDS: PANTOPRAZOLE SOD 40 MG TABEC PO SCH (07:30)
--- NOTE | 2019-03-06 07:59 | Diagnostic Imaging Report ---
A single frontal view of the chest. HISTORY: pneumonia COMPARISON: Chest radiograph March 03, 2019 DISCUSSION: Portable technique, limits sensitivity of the exam. Tubes/Lines: None Lungs and pleura: Low lung volumes result in bibasilar vascular crowding, accentuation of the pulmonary interstitial markings, central pulmonary vasculature, and the cardiac silhouette. Allowing for these limitations, the findings are as follows: Prominent interstitial markings, most notably in a peribronchial distribution. Mild right basilar atelectasis. No definite pleural effusion or pneumothorax is identified. Heart and mediastinum: The cardiomediastinal silhouette appears unremarkable. Central pulmonary vasculature is prominent. Bones and soft tissues: Appear unremarkable, given this limited exam. IMPRESSION: 1. Findings which are be seen in setting of a nonspecific bronchitis. Superimposed bronchopneumonia is a consideration given the provided history. 2. Mild right basilar atelectasis. 3. Central pulmonary vascular congestion. Signed by: Dr. Garret Baker D.O., M.M.M. on 03/06/2019 7:56 AM
[2019-03-06] MEDS: DOXYCYCLINE 100MG/NS 100ML 100 ML IV SCH ×2 (08:00→20:50)
[2019-03-06] MEDS: SPIRONOLACTONE 25 MG TAB PO SCH (09:00)
[2019-03-06] MEDS: PROPRANOLOL HCL 10 MG TAB PO SCH ×2 (09:00→16:45)
[2019-03-06] MEDS: FUROSEMIDE 40 MG TAB PO SCH (09:00)
[2019-03-06] MEDS: MULTIVITAMINS/MINERALS TAB PO SCH (09:00)
--- NOTE | 2019-03-06 19:25 | NUR ---
PT RESTING ON BED BED SIDE REPORT GIVEN TO ONCOMING NURSE
--- NOTE | 2019-03-06 19:35 | NUR ---
Received patient from day nurse, patient is alert and oriented, safety and fall precautions maintained as per hospital protocol: bed in lowest position and locked, needed items at bed side and call hernandez placed close to patient, bed alarm on patient, patient encouraged to use the call light at all times for help, verbalized understanding. patient is currently stable will continue to monitor. patient at bed side.
[2019-03-07] VITALS (8 sets, daily range): BP systolic 87–115; BP diastolic 50–65
[2019-03-07] MEDS: CEFEPIME 1GM/NS 0.9% 50 ML 50 ML IV SCH ×2 (03:22→13:30)
[2019-03-07] MEDS: ALBUTEROL SULF 0.083% NEB SOLN 3 ML NEB NEB SCH ×6 (03:40→23:40)
--- NOTE | 2019-03-07 06:54 | NUR ---
Patient endorsed to next shift for continuity of care.
--- NOTE | 2019-03-07 07:10 | NUR ---
RCD PT AT BED PT IS ALERT AND ORIENTED PT RESTING ON BED NO SIGNS OF ANY DISTRESS NOTED IV PATENT BED LOW AND LOCKED CALL LIGHT IN REACH
[2019-03-07] MEDS: PANTOPRAZOLE SOD 40 MG TABEC PO SCH (07:30)
[2019-03-07] MEDS: IPRATROPIUM BROMIDE 0.02% 2.5 ML NEB NEB SCH ×4 (07:45→23:40)
[2019-03-07] MEDS: DOXYCYCLINE 100MG/NS 100ML 100 ML IV SCH ×2 (08:00→20:00)
[2019-03-07] MEDS: MULTIVITAMINS/MINERALS TAB PO SCH (09:00)
[2019-03-07] MEDS: PROPRANOLOL HCL 10 MG TAB PO SCH ×2 (09:00→16:49)
[2019-03-07] MEDS: FUROSEMIDE 40 MG TAB PO SCH (09:00)
[2019-03-07] MEDS: SPIRONOLACTONE 25 MG TAB PO SCH (09:00)
--- NOTE | 2019-03-07 11:18 | Progress Note ---
DATE: 03/07/2019 Pulmonary Critical Care Progress Note I am covering for Dr. Randolph today. SUBJECTIVE: The patient is not complaining of cough or congestion. He has less dyspnea. He denies fevers. PHYSICAL EXAMINATION: VITAL SIGNS: The patient is afebrile. The vital signs are stable. HEENT: Shows no facial swelling or erythema. The oropharynx is normal. LYMPHATIC: Shows no submandibular, cervical, or supraclavicular adenopathy. CARDIAC: Reveals a regular rate and rhythm with a normal S1 and S2. LUNGS: Auscultation of lungs reveals clear breath sounds bilaterally. There is no wheezing. ABDOMEN: Soft, nontender. There is no rebound or guarding. IMPRESSION: 1. Pneumonia. 2. Lung mass. 3. Cirrhosis. 4. Anemia. PLAN: 1. Complete current antibiotics. 2. Repeat CT scan tomorrow with possible biopsy of lung mass. 3. Continue current regimen for cirrhosis. 4. Monitor blood counts and creatinine. Wayne Peña MD [facility]/MODL /[id number]
--- NOTE | 2019-03-07 12:00 | NUR ---
PAGED DR SANDOVAL TO GET CT ON CHEST ORDER AND LEFT MESSAGE
--- NOTE | 2019-03-07 16:54 | NUR ---
PAGED DR SANDOVAL AND NOTIFIED THE ORDER FOR CT IF OK WITH YOU GOT THE ORDER
--- NOTE | 2019-03-07 18:49 | NUR ---
PT RESTING ON BED BED SIDE REPORT GIVEN TO ONCOMING NURSE
[2019-03-08] VITALS (7 sets, daily range): BP systolic 92–109; BP diastolic 52–62
[2019-03-08] MEDS: CEFEPIME 1GM/NS 0.9% 50 ML 50 ML IV SCH ×2 (02:29→13:30)
[2019-03-08] MEDS: ALBUTEROL SULF 0.083% NEB SOLN 3 ML NEB NEB SCH ×4 (03:00→15:25)
--- NOTE | 2019-03-08 07:16 | NUR ---
patient endorsed to next shift for continuity of care.
[2019-03-08] MEDS: IPRATROPIUM BROMIDE 0.02% 2.5 ML NEB NEB SCH ×2 (07:18→15:25)
--- NOTE | 2019-03-08 07:30 | NUR ---
REC'D PT AAOX3, SITTING UP IN BED IN HIGH-FOWLERS POSITION, ON ROOM AIR, LT. HAND IV INTACT AND PATENT. SIDE RAILS UP X2, CALL GARCIA WITHIN REACH, AND BED IN LOWEST POSITION.
--- NOTE | 2019-03-08 08:00 | NUR ---
PT BLOOD PRESSURE IS 92/52. RECHECKED BLOOD PRESSURE MANUALLY. REC'D A BP OF 98/62. PATIENT IS ASYMPTOMATIC TO LOW BLOOD PRESSURE AND STATED THAT HE HAS BEEN RUNNING LOW EVER SINCE HE WAS ADMITTED TO THE HOSPITAL AND THAT DR. HINES IS AWARE OF IT.
--- NOTE | 2019-03-08 08:59 | Diagnostic Imaging Report ---
EXAM: CT Chest WITH intravenous contrast 03/08/2019 9:00 AM INDICATION: Follow up of pulmonary mass COMPARISON: Chest CT of 02/28/2019, multiple prior chest radiograph, most recently of 03/06/2019 TECHNIQUE: Chest was scanned utilizing a multidetector helical scanner from the lung apex through the level of the adrenal glands following administration of IV contrast. Coronal and sagittal reformations were obtained. Routine protocol was performed. IV CONTRAST: 100mL Isovue 370 RADIATION DOSE: Total DLP: 547.86 mGy*cm. Dose modulation, iterative reconstruction, and/or weight based adjustment of the mA/kV was utilized to reduce the radiation dose to as low as reasonably achievable. COMPLICATIONS: None FINDINGS: LINES/ TUBES: None. LUNGS AND AIRWAYS: The central airways are patent. Again seen is airspace consolidation in the posterior right upper lobe abutting the costal pleura. Compared to the prior CT of 02/28/2019, this area has decreased in size, now measuring 6.8 x 3.2 cm (series 3 image 28) compared to 7.3 x 5.4 cm previously (today's measurement). There has been interval development of some small areas of cavitation within the lesion. Other previously described lesions, including the 1.3 cm solid nodule in the left upper lobe and the 1.4 cm nodular opacity in the right lower lobe appear essentially unchanged. No new mass identified. PLEURA: No pleural effusion. No pneumothorax. HEART AND MEDIASTINUM: The thyroid gland is normal. No supraclavicular lymphadenopathy. An enlarged right hilar lymph node measures 1.9 x 1.3 cm (series 2 image 53) and an enlarged pretracheal mediastinal node measures 2.2 x 1.5 cm (series 2 image 51). The heart is not enlarged. No pericardial effusion. There are atherosclerotic calcifications of the coronary arteries and thoracic aorta. UPPER ABDOMEN: Small volume ascites. Liver contour is nodular. Prominent upper abdominal portosystemic varices are suggestive of portal hypertension. The spleen is enlarged. Calcific density involving the partially visualized decompressed gallbladder. The adrenal glands appear normal. Partially visualized kidneys appear unremarkable. BONES: No acute fracture or dislocation. No suspicious lytic or blastic lesions. SOFT TISSUES: Unremarkable. IMPRESSION: 1. Interval decrease in size of right upper lobe consolidation with development of small internal areas of cavitation, consistent with resolving infectious component of this lesion. Given the presence of the unchanged suspicious nodules in the left upper lobe and right lower lobe, there is still concern for underlying malignancy. Mediastinal and right hilar lymphadenopathy appear unchanged. 2. Cirrhotic liver morphology, splenomegaly, and findings of portal hypertension. Small volume ascites. RECOMMENDATIONS: Recommend diagnostic sampling upon resolution of acute infectious episode. Signed by: Silverio Park MD on 03/08/2019 8:55 AM
[2019-03-08] MEDS: PROPRANOLOL HCL 10 MG TAB PO SCH ×2 (09:00→16:24)
--- NOTE | 2019-03-08 09:15 | NUR ---
DR. HINES OKAY WITH PATIENT BEING DISCHARGED TODAY BUT TO CHECK FIRST WITH DR. RODRIGUEZ (COVERING FOR DR. SANDOVAL) AND DR. ORELLANA. ORDERED STAT CBC AND BMP.
[2019-03-08] MEDS: SPIRONOLACTONE 25 MG TAB PO SCH (09:43)
[2019-03-08] MEDS: PANTOPRAZOLE SOD 40 MG TABEC PO SCH (09:44)
[2019-03-08] MEDS: FUROSEMIDE 40 MG TAB PO SCH (09:44)
[2019-03-08] MEDS: MULTIVITAMINS/MINERALS TAB PO SCH (09:44)
[2019-03-08] MEDS: DOXYCYCLINE 100MG/NS 100ML 100 ML IV SCH (09:51)
[2019-03-08 11:04] LABS: BASOPHILS % 0.5 % (0.0-1.0); EOSINOPHILS # (AUTO) 0.1 (0.0-0.4); EOSINOPHILS % 1.7 % (0.0-6.0); HEMATOCRIT 25.2 % (38.2-49.6); HEMOGLOBIN 7.9 g/dL (14.0-18.0); LYMPHOCYTES # (AUTO) 1.1 (1.0-3.2); MEAN CORPUSCULAR HGB CONC 31.3 g/dL (31-35); MONOCYTES # (AUTO) 0.4 (0.2-0.8); MONOCYTES % 9.5 % (4.4-11.3); NEUTROPHILS # (AUTO) 2.6 (2.1-6.9); NEUTROPHILS % 62.1 % (38.7-80.0); PLATELET COUNT 149 x10e3/uL (140-360); RED BLOOD COUNT 2.93 x10e6/uL (4.3-5.7); RED CELL DISTRIBUTION WIDTH 15.4 % (11.7-14.4)
[2019-03-08 11:23] LABS: BLOOD UREA NITROGEN < 5 mg/dL (7-26); CALCIUM 7.9 mg/dL (8.4-10.2); CARBON DIOXIDE 24 mmol/L (22-29); CHLORIDE 107 mmol/L (98-107); CREATININE, SERUM 0.62 mg/dL (0.72-1.25); EST GLOMERULAR FILTRATION RATE > 60 ML/MIN (60-); GLUCOSE 132 mg/dL (74-118); SODIUM 136 mmol/L (136-145)
[2019-03-08 11:25] LABS: BUN/CREATININE RATIO 8 (6-25)
--- NOTE | 2019-03-08 14:45 | NUR ---
PAGED DR. ORELLANA TO SEE IF IT IS OKAY TO DISCHARGE PATIENT FROM HER STAND POINT.
[2019-03-08] MEDS ORDERED: SODIUM CHLORIDE 0.9% 50ML 50 ML ONE (14:48)
[2019-03-08] MEDS ORDERED: IOPAMIDOL 370 MG/ML 200 ML INFUS..BTL INJ ONE (14:48)
--- NOTE | 2019-03-08 15:20 | NUR ---
PATIENT OKAY TO GO FROM DR. LORRAINE RODRIGUEZ'S STAND POINT. WROTE PRESCRIPTIONS.
--- NOTE | 2019-03-08 15:30 | Progress Note ---
DATE: SUBJECTIVE: The patient has improved since being in the hospital. He had fevers initially, but is no longer febrile. His white blood cell count has returned to normal. He is off oxygen. PHYSICAL EXAMINATION: VITAL SIGNS: The blood pressure is 98/60 and the saturation is 99% on room air, and pulse is 77. HEENT: Shows no facial swelling or erythema. The nasal mucosa is normal. The oropharynx shows some poor dentition. LYMPHATIC: Shows no submandibular, cervical, or supraclavicular adenopathy. CARDIAC: Reveals regular rate and rhythm with normal S1, S2. LUNGS: Auscultation of lungs shows clear breath sounds bilaterally. There is no wheezing. ABDOMEN: Soft, nontender. There is no rebound or guarding. EXTREMITIES: Show no leg edema or calf tenderness. There is no cyanosis or clubbing. SKIN: Shows no rashes. NEUROLOGICAL: Shows no focal abnormalities. RADIOGRAPHIC DATA: CT scan of the chest shows interval decrease in the size of the right upper lobe consolidation. There are still some unchanged nodules in the left upper lobe and right lower lobe. There is mild mediastinal adenopathy. IMPRESSION: 1. Community-acquired pneumonia with sepsis, present on admission. 2. Pulmonary nodules of unclear etiology in a nonsmoker. 3. Mediastinal adenopathy, possibly related to the infectious process. 4. Cirrhosis. 5. Anemia. PLAN: 1. The patient should complete the additional antibiotics for another 7 days as an outpatient. 2. Await results of coccidioidomycosis antibody and urine histoplasma antigen. 3. Repeat CT scan in 4 to 6 weeks. If the infiltrates and adenopathy continue to improve. We can watch the patient. 4. If the patient has persistent abnormalities on the repeat CT scan, then a PET scan and/or CT-guided biopsy of the lung would be indicated. Wayne Peña MD [facility] /[id number]
[2019-03-08] MEDS ORDERED: CLINDAMYCIN HC150 MG PO (16:55)
[2019-03-08] MEDS ORDERED: LEVAQUIN500 MG PO (16:55)
--- NOTE | 2019-03-08 17:40 | NUR ---
DR. HINES CALLED BACK TO READ CBC AND BMP RESULTS. DR. HINES SAID HE IS OKAY WITH LABS AND HE CAN GO HOME. WAITING ON DR. GUZMAN (COVERING FOR DR. CARR) TO CALL BACK TO SEE IF HE IS OKAY IN DISCHARGING PATIENT.
--- NOTE | 2019-03-08 17:55 | NUR ---
DR. GUZMAN (COVERING FOR DR. CARR) CALLED BACK TO SEE IF OKAY TO D/C PATIENT. DR. GUZMAN SAID HE WOULD BE HERE AT THE HOSPITAL BEFORE 7PM TO GIVE PRESCRIPTIONS BEFORE DISCHARGING PATIENT.
--- NOTE | 2019-03-08 18:18 | NUR ---
PATIENT IS SITTING ON RECLINER EATING DINNER, AT THE BEDSIDE, NO S/S OF DISTRESS. CALL GARCIA WITHIN REACH.
--- NOTE | 2019-03-08 19:00 | NUR ---
Received change of shift report from AM nurse. Walking rounds completed.
[2019-03-08] MEDS ORDERED: FUROSEMIDE40 MG PO ×2 (19:54→19:56)
[2019-03-08] MEDS ORDERED: SPIRONOLACTONE100 MG (19:55)
--- NOTE | 2019-03-08 20:00 | NUR ---
Dr Caballero to see patient. Patient d/c home. Teaching done with pt. and on meds, S and S, F/u appt. Patient and verbalize understanding of teaching.
--- NOTE | 2019-03-08 20:34 | NUR ---
Patient d/c ambulated to private car. Belonging sent with patient.
--- NOTE | 2019-03-08 21:16 | Progress Note ---
DATE: 03/08/2019 SUBJECTIVE: The patient is going to be discharged home today. He has had a repeat CT scan of the chest today that showed interval decrease in the size of the right upper lobe consolidation with development of small internal areas of cavitation consistent with resolving infectious component of the lesion. The patient also has decompensated alcoholic liver cirrhosis. He is on dual diuretic therapy. He is tolerating oral diet. Regular bowel movement. Denies any abdominal pain. REVIEW OF SYSTEMS: GENERAL: Weakness and lethargy have improved. CVS: No chest pain or palpitation. RESPIRATORY: No cough or expectoration. MEDICATIONS: Reviewed the MAR. PHYSICAL EXAMINATION: VITAL SIGNS: Temperature 98.4, pulse 79, respirations 18, blood pressure 98/55, oxygen saturation 98% on room air. GENERAL: Not in any apparent distress. Oral mucosa is moist. HEENT: Bilateral slightly icteric sclerae. ABDOMEN: Soft, nondistended, nontender. No digitally appreciable shifting dullness. Bowel sounds present. EXTREMITIES: The leg edema has improved. LABS: WBC 4.12, hemoglobin 7.9, hematocrit 25.2, MCV 86, platelet count 149. Sodium 136, potassium 4.0, chloride 107, bicarb 24, BUN 5, creatinine 0.62. CT of the chest done today showed: 1. Interval decrease in the size of right upper lobe consolidation with development of a small internal areas of cavitation, consistent with resolving infectious component of this lesion. Given the presence of the unchanged suspicious nodule in the left upper lobe and right lower lobe, there is still concern for underlying malignancy. Mediastinal and right hilar adenopathy appears unchanged. 2. Cirrhotic liver morphology, splenomegaly, and finding of portal hypertension. Small volume ascites. Recommendation, diagnostic sampling upon resolution of acute infectious episode. IMPRESSION: 1. Decompensated alcoholic liver cirrhosis with portal hypertension, esophageal and gastric varices, status post EUS-guided endo coiling of the gastric varices. 2. Right lung consolidation versus underlying malignancies. CT showing interval resolution of the consolidation with cavitation, suggestive of resolution of infectious process. However, the patient needs repeat scanning and outpatient followup to determine whether lung biopsy will be needed. PLAN: From GI standpoint, the patient can be discharged home. I am giving him the prescription of spironolactone as well as furosemide. The patient to be remain excused from work for at least one week. I will follow him in my office in 1 to 2 weeks. The patient's has my business card. She will call and schedule the appointment. Scott Caballero MD [facility] /[id number]
--- NOTE | 2019-04-06 12:05 | Discharge Summary ---
CHIEF COMPLAINT: Generalized weakness and generalized body aches. FINAL DIAGNOSES: Right upper lobe pneumonia, lung mass, liver cirrhosis. DISPOSITION: Home. HOSPITAL COURSE: A 58-year-old male, known history of liver cirrhosis, diagnosed in 2018 due to alcoholism. The patient presents to the ER with a 2 to 3-day history of generalized weakness, generalized body aches, an elevated temp, shaking chills, and positive nonproductive cough. Right-sided chest pain with coughing. Positive shortness of breath. No nausea or vomiting. Reviewed and evaluated in the emergency room. Chest was showing evidence of inspiratory crackles. Blood work was conducted. X-rays of chest was conducted. The patient admitted to facility for care regarding generalized weakness and fever, right upper lobe pneumonia, lung mass, liver cirrhosis, and anemia. We will be monitoring the patient's H and H levels. We will begin IV antibiotic coverage. We will be requesting a Pulmonary follow. With admission and as the chest x-ray was showing abnormal findings, Dr. Randolph was asked to follow from a Pulmonary standpoint. With his review of the patient, his findings was an abnormal CT. A 5.3 cm ground-glass consolidation right upper lobe, treated for community-acquired pneumonia. History of some fevers in the last 5 months, recurring, widened differential, rule out chronic pneumonia, bilateral lung nodules, more solid appearance either related to the acute pneumonitis versus unrelated. Nonspecific lymph nodes up to 1.6 cm in size, hypertension, portal hypertension, esophageal varices status post banding, coagulopathy likely hepatic related, severe protein malnutrition, hypergammaglobulinemia, anemia, thrombocytopenia, hyponatremia, hypokalemia, leg edema. Recommending treating the patient for a community acquired pneumonia. Check noninvasive and serologic markers for fungal pneumonias. Regarding the solid lung nodules, we will consider biopsy if he does get better soon or alternatively perform 3 months repeat chest x-ray with or without PET scanning. The patient's condition is guarded due to his advanced cirrhosis. He is also being seen by Dr. Chavez from a GI standpoint regarding his decompensated alcoholic liver cirrhosis. With his review, his impression was decompensated alcoholic liver cirrhosis with esophageal varices and portal hypertension. Chest CT also showing some metallic clips in the stomach. This is likely that the patient may have had gastric varices, for which he has had EUS guided endo-coiling. Right lung consolidation versus underlying malignancies with multiple pleural nodules. Recommend continuing current medical management. He states he suspects that the patient has developed ascites and peripheral leg edema. He is to be treated with dual diuretic. We will be starting the patient on 40 mg of furosemide and 100 mg of spironolactone. The patient was on the Med-Surg floor. Cardiac diet. He was on IV fluids. He was receiving nebulizer treatments, was started on piperacillin, ceftriaxone. Daily medications were continued as well. Lab studies were continued to be monitored. Early on, the patient was having some issues with fever up to 102. Followup x-rays were noted. Findings were revealing some multifocal pneumonia. He was started on antipyretics. Medication are being further adjusted as needed. His temp improved, but he was still running a mild temp. He underwent his consultants followups. CT studies and regular routine x-rays were being repeated for comparison. Noted to start feeling much better. The patient was becoming anxious to go home. CT scans were showing to be persistent with a nodular findings and the lymphedema finding, showed set of lymphadenopathy. But, the patient was cleared to be discharged home, was noted to be anemic. His final hemoglobin was 7.8. IMAGING: Initial chest x-ray shows indeterminate right upper lobe mass/consolidation. Recommending CT chest with IV contrast. CT chest performed with contrast. Findings revealed large right upper lobe pleural based consolidation/mass with associated multiple pleural-based posterior right lower lobe and left upper lobe solid nodules, measuring up to 13 mm. Findings are highly concerning for malignancy with possible superimposed pneumonia. Differential diagnosis includes aggressive infection due to mycobacterial or fungal infection. Mediastinal and right hilar lymphadenopathy. Repeat chest x-ray routine shows right upper lobe opacities consistent with pneumonia, although underlying malignancy is possible. New small right pleural effusion. Abdominal ultrasound shows hepatic steatosis with cirrhotic liver contour. Decompressed gallbladder with small amount of sludge and small echogenic foci. No specific sonographic findings of cholecystitis. Final CT of chest shows interval decrease in size of right upper lobe consolidation with development of small internal areas of cavitation, consistent with resolving infectious component of this lesion. Given the presence of the unchanged suspicious nodules in the left upper lobe and right lower lobe, there was still concern for underlying malignancy. Mediastinal and right hilar lymphadenopathy appear unchanged. Cirrhotic liver morphology, splenomegaly and findings of portal hypertension. Small volume ascites. Recommend diagnostic sampling upon resolution of acute infectious episode. Cultures, urine unremarkable. Blood cultures were showing E coli. LABORATORY STUDIES: CBC showing initial white cell count of 14,500, H and H was 8.6 and 26.1, platelets were 81,000. Followup CBC shows a decline in the white cell count down to 4100, H and H has fell to 7.8 and 23.9, final study 7.9 and 25.2. Final platelets are 149,000. HIV studies nonreactive. Urinalysis shows 0-5 rbc's by high-power field, 6-10 wbc's by high-power field, few bacteria. Chemistries; initial panel shows sodium of 131, potassium 3.3. Kidney function stable. Glucose 120, total bilirubin 4.2. Followup chemistry shows a slow upper climb of the sodium, final study 136. Potassium did fall to 3.2. Corrective measures were given. Final potassium is 4.0, BUN and creatinine remained stable. Final glucose is 132. Magnesium fell to 1.1, final study 1.3. Total bilirubin final study 1.6. Liver enzymes were normal. Final albumin is 1.6, final globulin was 3.6, total protein low at 5.2. The patient reached his potential recovery and arrangements were being made for discharge planning. The patient is scheduled to be discharged home. The patient was released on 03/08/2019, stable, but guarded condition. With discharge, he will continue on his current diet. No equipments or supplies were necessary. No drain or Hewitt was needed. Activity level as directed by me as well as by Dr. Randolph, Dr. Flores. We will be reporting back to his PCP within 7-10 days. The patient will be continuin. Clindamycin 350 mg p.o. t.i.d. for 21 days. 2. Furosemide 40 mg daily. 3. Levaquin 500 mg p.o. daily for 7 days. 4. Protonix 40 mg daily. 5. Propranolol 10 mg p.o. b.i.d. 6. Spironolactone 100 mg daily. Any question of concerns or redevelopment of similar symptoms, to be contacting his PCP. Dictated by PETROS Kingsley Yusef García MD [facility] /[id number]
== END 2019-03-08 20:16 | disposition home or self-care (01) | DRG 871 ==
LOC: ER 11:48 → ERHOLD 18:21 → MED/SURG3 19:39
DX: A41.9 Sepsis, unspecified organism (principal); J18.9 Pneumonia, unspecified organism; E43 Unspecified severe protein-calorie malnutrition; E87.1 Hypo-osmolality and hyponatremia; K76.6 Portal hypertension; D68.4 Acquired coagulation factor deficiency; Z68.27 Body mass index [BMI] 27.0-27.9, adult; F10.21 Alcohol dependence, in remission; R59.0 Localized enlarged lymph nodes; K70.30 Alcoholic cirrhosis of liver without ascites; D64.9 Anemia, unspecified; R91.8 Other nonspecific abnormal finding of lung field; I86.4 Gastric varices; D89.2 Hypergammaglobulinemia, unspecified; E87.6 Hypokalemia; D69.6 Thrombocytopenia, unspecified; R60.0 Localized edema
CPT/HCPCS: 36415; 71045; 71046; 71260; 76705; 80048; 80053; 81001; 82140; 83615; 83735; 84100; 85025; 85610; 85730; 86635; 87040; 87071; 87086; 87186; 87205; 87385; 87390; 93005; 94640; 99284; G0433; G0435; J0692; J0696; J2543; J3430; J3475; J3480; J7040; J7050; Q9967

== ENCOUNTER → 2019-04-19 | Outpatient (CLI) | payer OTHER ==
[~2019-04-19] MED LIST: CLINDAMYCIN HC150 MG PO; FUROSEMIDE40 MG PO; IOPAMIDOL 370 MG/ML 200 ML INFUS..BTL INJ ONE; LEVAQUIN500 MG PO; PANTOPRAZOLE SO40 MG PO; PROPRANOLOL HCL10 MG PO; SODIUM CHLORIDE 0.9% 50ML 50 ML ONE; SPIRONOLACTONE100 MG
[2019-04-19 08:07] LABS: BLOOD UREA NITROGEN 7 mg/dL (7-26); BUN/CREATININE RATIO 11 (6-25); CREATININE, SERUM 0.61 mg/dL (0.72-1.25); EST GLOMERULAR FILTRATION RATE > 60 ML/MIN (60-)
--- NOTE | 2019-04-19 09:34 | Diagnostic Imaging Report ---
Exam: CT chest with contrast Comparison: March 08, 2019 Clinical history: Pulmonary nodules Technique: Helical images of the chest were obtained after IV contrast administration Findings: There is significant interval improvement in the right upper lobe opacity measuring 2.1 x 2.6 cm today. It measured 8.3 x 6.0 cm previously. Small residual cavitation is noted. This likely represents resolving pneumonitis. The prior mentioned pleural-based 1.3 cm nodule in the left upper lobe is again noted without interval change. The right lower lobe focal opacity has decreased in size measuring 8 mm today. It measured 1.4 cm previously. This may also represent postinflammatory changes. There is no evidence of pleural effusion or pneumothorax. The tracheobronchial tree is clear. The cardiac size is within normal limits. The great vessels are normal in caliber and orientation. The previously seen precarinal lymph node is again noted measuring 1.4 x 2.0 cm unchanged compared to the prior study. The liver demonstrates mildly lobulated border which likely represents chronic changes. The spleen also appears enlarged. Portosystemic varices are again noted in the epigastric region most consistent with portal hypertension. Impression: 1. Decrease in size of the right upper lobe airway disease likely due to resolving on pneumonitis. 2. Decrease in size of the right lower lobe nodular opacity which may also represent resolving pneumonitis. 3. Stable appearing left upper lobe 1.3 cm pulmonary nodule, this may represent neoplasm. 4. Stable appearing mediastinal lymphadenopathy. 5. Cirrhotic changes of the liver with splenomegaly and associated findings suggesting portal hypertension. Signed by: Dr. Tommy Ariza MD on 04/19/2019 9:30 AM
== END ==
LOC: CT 07:15
PROVIDERS: ATTEND Internal Medicine Critical Care Medicine
DX: R91.8 Other nonspecific abnormal finding of lung field (principal); R59.9 Enlarged lymph nodes, unspecified
CPT/HCPCS: 36415; 71260; 82565; 84520; Q9967